=== PATIENT | male | born 1950 | race Caucasian/White ===

== ENCOUNTER 2021-01-10 10:24 | Outpatient (REF) | payer MEDICARE, SELFPAY ==
--- NOTE | ~2021-01-10 | XR_ITS ---
EXAMINATION: RIGHT SHOULDER AND LEFT FOOT X-RAY CLINICAL INFORMATION: Pain COMPARISON: None TECHNIQUE: 4 views of the right shoulder and 3 views of the left foot FINDINGS: Right shoulder: Bone alignment is normal. No fracture or dislocation is seen. The glenohumeral joint is normal. There is mild arthritis at the acromioclavicular joint. Soft tissues are normal. Left foot: Bone alignment is normal. No fracture or dislocation is seen. 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 There are small calcaneal spurs. Soft tissues are otherwise normal. XR/XR foot LT 2V IMPRESSION: Right shoulder: Mild arthritis at the acromioclavicular joint. Left foot: Arthritis at the first MTP joint. Calcaneal spurs.
--- NOTE | ~2021-01-10 | XR_ITS ---
EXAMINATION: RIGHT SHOULDER AND LEFT FOOT X-RAY CLINICAL INFORMATION: Pain COMPARISON: None TECHNIQUE: 4 views of the right shoulder and 3 views of the left foot FINDINGS: Right shoulder: Bone alignment is normal. No fracture or dislocation is seen. The glenohumeral joint is normal. There is mild arthritis at the acromioclavicular joint. Soft tissues are normal. Left foot: Bone alignment is normal. No fracture or dislocation is seen. 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 There are small calcaneal spurs. Soft tissues are otherwise normal. XR/XR shoulder RT min 2V IMPRESSION: Right shoulder: Mild arthritis at the acromioclavicular joint. Left foot: Arthritis at the first MTP joint. Calcaneal spurs.
[2021-01-10 12:12] LABS: Anion Gap 12 (12-20); Blood Urea Nitrogen 22 mg/dL (9-16); Calcium 9.5 mg/dL (8.4-10.2); Carbon Dioxide 30 mmol/L (22-29); Chloride 106 mmol/L (96-108); Estimated Glomerular Filt Rate > 60; Glucose Random 97 mg/dL (60-115); Sodium 144 mmol/L (135-145); Uric Acid 7.7 mg/dL (3.4-7.0)
== END 2021-01-10 10:25 | disposition home or self-care (01) ==
LOC: HO.XRAY 10:24
PROVIDERS: PCP Internal Medicine; Visit Provider Internal Medicine
DX: M79.672 Pain in left foot (principal)
CPT/HCPCS: 36415; 73030; 73620; 80048; 84550

== ENCOUNTER 2021-01-30 13:07 | Outpatient (REF) | payer MEDICARE, SELFPAY ==
[2021-01-30 14:04] LABS: MANUAL DIFF FLAG NO
[2021-01-30 14:10] LABS: Basophils Percent Auto 0.1 % (0-2); Eosinophils Absolute Auto 0.3 X10*3/uL (0.0-0.4); Eosinophils Percent Auto 3.9 % (0-4); Hematocrit 45.6 % (42-52); Hemoglobin 14.7 g/dl (14.0-18.0); Imm Gran Abs Auto 0.01 X10*3/uL (0.00-0.03); Imm Gran Pct Auto 0.1 % (0.0-0.4); Lymphocytes Absolute Auto 1.4 X10*3/uL (1.2-4.9); Lymphocytes Percent Auto 20.3 % (20-40); Mean Corpuscular HGB Conc 32.2 g/dl (31.0-36.0); Mean Corpuscular Hemoglobin 29.9 pg (27.0-33.0); Mean Corpuscular Volume 92.9 fL (80-98); Mean Platelet Volume 11.7 fL (9.4-12.4); Monocytes Absolute Auto 0.5 X10*3/uL (0.1-1.2); Monocytes Percent Auto 6.9 % (2-11); Neutrophils Absolute Auto 4.7 X10*3/uL (2.0-8.3); Neutrophils Percent Auto 68.7 % (45-73); Platelet Count 144 X10*3/uL (160-400); Red Blood Count 4.91 X10*6/uL (4.60-5.80); Red Cell Distribution Width 12.8 % (11.0-16.0); White Blood Count 6.9 X10*3/uL (4.8-10.8)
[2021-01-30 14:37] LABS: Cholesterol 127 mg/dL; HDL Cholesterol 35 mg/dL; LDL Cholesterol Calculated 64 mg/dl; Triglycerides 140 mg/dL
[2021-01-30 14:57] LABS: Prostate Specific Antigen 0.85 ng/mL (<0.05-4.0); TSH reflex Free T4 0.36 uIU/mL (0.32-4.0); Vitamin D 25-OH Total 32.8 ng/mL (>30)
== END 2021-01-30 13:08 | disposition home or self-care (01) ==
LOC: HO.LAB 13:07
PROVIDERS: PCP Internal Medicine; Visit Provider Nurse Practitioner Family
DX: Z00.00 Encounter for general adult medical examination without abnormal findings (principal); Z12.5 Encounter for screening for malignant neoplasm of prostate; I10 Essential (primary) hypertension
CPT/HCPCS: 36415; 80061; 82306; 84153; 84443; 85025

== ENCOUNTER 2021-09-17 09:26 | Outpatient (REF) | payer MEDICARE, SELFPAY ==
[2021-09-17 09:43] LABS: MANUAL DIFF FLAG NO
[2021-09-17 09:59] LABS: Basophils Percent Auto 0.1 % (0-2); Eosinophils Absolute Auto 0.2 X10*3/uL (0.0-0.4); Eosinophils Percent Auto 3.2 % (0-4); Hematocrit 48.2 % (42.0-52.0); Hemoglobin 15.7 g/dl (14.0-18.0); Imm Gran Abs Auto 0.01 X10*3/uL (0.00-0.03); Imm Gran Pct Auto 0.1 % (0.0-0.4); Lymphocytes Absolute Auto 1.5 X10*3/uL (1.2-4.9); Lymphocytes Percent Auto 21.4 % (20-40); Mean Corpuscular HGB Conc 32.6 g/dl (31.0-36.0); Mean Corpuscular Hemoglobin 30.4 pg (27.0-33.0); Mean Corpuscular Volume 93.4 fL (80.0-98.0); Monocytes Absolute Auto 0.5 X10*3/uL (0.1-1.2); Monocytes Percent Auto 7.8 % (2-11); Neutrophils Absolute Auto 4.7 x10*3/uL (2.0-8.3); Neutrophils Percent Auto 67.4 % (45-73); Platelet Count 142 X10*3/uL (160-400); Red Blood Count 5.16 X10*6/uL (4.60-5.80); Red Cell Distribution Width 13.1 % (11.0-16.0)
[2021-09-17 10:40] LABS: Alanine Aminotransferase 26 U/L (0-40); Albumin Level 4.1 g/dL (3.5-5.0); Alkaline Phosphatase 110 U/L (39-117); Anion Gap 8 (12-20); Aspartate Amino Transferase 29 U/L (5-37); Blood Urea Nitrogen 22 mg/dL (9-16); Calcium 9.8 mg/dL (8.4-10.2); Carbon Dioxide 36 mmol/L (22-29); Chloride 105 mmol/L (96-108); Cholesterol 147 mg/dL; Estimated Glomerular Filt Rate > 60; Glucose Fasting 108 mg/dL (60-99); HDL Cholesterol 37 mg/dL; LDL Cholesterol Calculated 82 mg/dl; Potassium 4.4 mmol/L (3.3-5.1); Sodium 145 mmol/L (135-145); Triglycerides 140 mg/dL; Uric Acid 4.6 mg/dL (3.4-7.0)
== END 2021-09-17 09:27 | disposition home or self-care (01) ==
LOC: HO.LAB 09:26
PROVIDERS: PCP Internal Medicine; Visit Provider Internal Medicine
DX: Z00.00 Encounter for general adult medical examination without abnormal findings (principal); Z13.0 Encounter for screening for diseases of the blood and blood-forming organs and certain disorders involving the immune mechanism; M10.9 Gout, unspecified
CPT/HCPCS: 36415; 80053; 80061; 84550; 85025

== ENCOUNTER 2022-03-09 10:24 | Outpatient (REF) | payer MEDICARE, SELFPAY ==
[2022-03-09 12:35] LABS: Anion Gap 12 (12-20); Blood Urea Nitrogen 36 mg/dL (9-16); Calcium 9.3 mg/dL (8.4-10.2); Carbon Dioxide 34 mmol/L (22-29); Chloride 100 mmol/L (96-108); Estimated Glomerular Filt Rate 47; Glucose Random 100 mg/dL (60-115); Potassium 4.7 mmol/L (3.3-5.1); Sodium 141 mmol/L (135-145)
== END 2022-03-09 10:25 | disposition home or self-care (01) ==
LOC: HO.LAB 10:24
PROVIDERS: PCP Internal Medicine; Visit Provider Internal Medicine
DX: R51.9 Headache, unspecified (principal)
CPT/HCPCS: 36415; 80048

== ENCOUNTER 2022-11-09 08:47 | Outpatient (REF) | payer MEDICARE, SELFPAY ==
[2022-11-09 09:03] LABS: MANUAL DIFF FLAG NO
[2022-11-09 09:18] LABS: Basophils Percent Auto 0.3 % (0-2); Eosinophils Absolute Auto 0.2 X10*3/uL (0.0-0.4); Eosinophils Percent Auto 3.3 % (0-4); Hematocrit 47.8 % (42.0-52.0); Hemoglobin 15.1 g/dl (14.0-18.0); Imm Gran Abs Auto 0.01 X10*3/uL (0.00-0.03); Imm Gran Pct Auto 0.1 % (0.0-0.4); Lymphocytes Absolute Auto 1.8 X10*3/uL (1.2-4.9); Lymphocytes Percent Auto 24.1 % (20-40); Mean Corpuscular HGB Conc 31.6 g/dl (31.0-36.0); Mean Corpuscular Hemoglobin 29.7 pg (27.0-33.0); Mean Corpuscular Volume 93.9 fL (80.0-98.0); Mean Platelet Volume 10.4 fL (9.4-12.4); Monocytes Absolute Auto 0.6 X10*3/uL (0.1-1.2); Monocytes Percent Auto 8.4 % (2-11); Neutrophils Absolute Auto 4.6 x10*3/uL (2.0-8.3); Neutrophils Percent Auto 63.8 % (45-73); Platelet Count 162 X10*3/uL (160-400); Red Blood Count 5.09 X10*6/uL (4.60-5.80); Red Cell Distribution Width 13.4 % (11.0-16.0); White Blood Count 7.3 X10*3/uL (4.8-10.8)
[2022-11-09 09:58] LABS: Alanine Aminotransferase 22 U/L (0-40); Alkaline Phosphatase 120 U/L (39-117); Anion Gap 14 (12-20); Aspartate Amino Transferase 28 U/L (5-37); Bilirubin Total 1.1 mg/dL (0.0-1.0); Blood Urea Nitrogen 29 mg/dL (9-16); Calcium 9.6 mg/dL (8.4-10.2); Carbon Dioxide 35 mmol/L (22-29); Chloride 101 mmol/L (96-108); Cholesterol 159 mg/dL; Estimated Glomerular Filt Rate 57; Glucose Fasting 113 mg/dL (60-99); HDL Cholesterol 37 mg/dL; LDL Cholesterol Calculated 91 mg/dl; Potassium 4.5 mmol/L (3.3-5.1); Sodium 145 mmol/L (135-145); Total Protein 6.8 g/dL (6.5-8.0); Triglycerides 159 mg/dL
== END 2022-11-09 08:48 | disposition home or self-care (01) ==
LOC: HO.LAB 08:47
PROVIDERS: PCP Internal Medicine; Visit Provider Internal Medicine
DX: D64.9 Anemia, unspecified (principal); N28.9 Disorder of kidney and ureter, unspecified; E78.5 Hyperlipidemia, unspecified; M10.9 Gout, unspecified
CPT/HCPCS: 36415; 80053; 80061; 84550; 85025

== ENCOUNTER 2022-11-12 11:39 | Outpatient (REF) | payer MEDICARE, SELFPAY ==
--- NOTE | ~2022-11-12 | XR_ITS ---
EXAMINATION: XR LUMBOSACRAL SPINE CLINICAL INFORMATION: Back pain COMPARISON: None available. TECHNIQUE: Three views of the lumbosacral spine. FINDINGS: There is mild 3 mm anterior subluxation of L4 with respect L5. Bone alignment is otherwise normal. No fracture or dislocation. There is degenerative disc disease and spondylosis at L5-S1. There is lower lumbar spine facet arthritis. XR/XR lumbar spine 2-3V IMPRESSION: Mild anterior subluxation of L4 with respect L5 and degenerative disc disease and spondylosis at L5-S1.
--- NOTE | ~2022-11-12 | XR_ITS ---
EXAMINATION: Knee x-ray CLINICAL INFORMATION: Pain COMPARISON: None. TECHNIQUE: 2 views of each knee FINDINGS: Left: Bone alignment is normal. No fracture or dislocation. Normal joint spaces. No joint effusion. Right: Bone alignment is normal. No fracture or dislocation. Normal joint spaces. No joint effusion. XR/XR knee LT 2V IMPRESSION: Unremarkable examination.
--- NOTE | ~2022-11-12 | XR_ITS ---
EXAMINATION: Knee x-ray CLINICAL INFORMATION: Pain COMPARISON: None. TECHNIQUE: 2 views of each knee FINDINGS: Left: Bone alignment is normal. No fracture or dislocation. Normal joint spaces. No joint effusion. Right: Bone alignment is normal. No fracture or dislocation. Normal joint spaces. No joint effusion. XR/XR knee RT 2V IMPRESSION: Unremarkable examination.
--- NOTE | ~2022-11-12 | XR_ITS ---
EXAMINATION: Bilateral hip x-ray CLINICAL INFORMATION: Pain COMPARISON: None. TECHNIQUE: 2 views of each hip FINDINGS: Right: Bone alignment is normal. No fracture or dislocation. Normal joint space. Normal soft tissues. Left: Bone alignment is normal. No fracture or dislocation. Normal joint space. Normal soft tissues. XR/XR hip RT min 2V IMPRESSION: Unremarkable examination.
--- NOTE | ~2022-11-12 | XR_ITS ---
EXAMINATION: Bilateral hip x-ray CLINICAL INFORMATION: Pain COMPARISON: None. TECHNIQUE: 2 views of each hip FINDINGS: Right: Bone alignment is normal. No fracture or dislocation. Normal joint space. Normal soft tissues. Left: Bone alignment is normal. No fracture or dislocation. Normal joint space. Normal soft tissues. XR/XR hip LT min 2V IMPRESSION: Unremarkable examination.
== END 2022-11-12 11:40 | disposition home or self-care (01) ==
LOC: HO.XRAY 11:39
PROVIDERS: PCP Internal Medicine; Visit Provider Internal Medicine
DX: M25.552 Pain in left hip (principal); M54.9 Dorsalgia, unspecified; M25.551 Pain in right hip; M25.561 Pain in right knee; M25.562 Pain in left knee
CPT/HCPCS: 72100; 73502; 73560

== ENCOUNTER 2023-02-23 10:56 | Outpatient (REF) | payer MEDICARE, SELFPAY ==
[2023-02-23 13:01] LABS: Cholesterol 132 mg/dL; HDL Cholesterol 34 mg/dL; LDL Cholesterol Calculated 65 mg/dl; Triglycerides 166 mg/dL; Uric Acid 5.3 mg/dL (3.4-7.0)
== END 2023-02-23 10:57 | disposition home or self-care (01) ==
LOC: HO.LAB 10:56
PROVIDERS: PCP Internal Medicine; Visit Provider Internal Medicine
DX: M10.9 Gout, unspecified (principal); E78.5 Hyperlipidemia, unspecified
CPT/HCPCS: 36415; 80061; 84550

== ENCOUNTER 2023-03-22 11:17 | Outpatient (AMB) | payer MEDICARE, SELFPAY ==
--- NOTE | 2023-03-22 11:20 | MHC.PC.OV ---
Vital Signs 03/22/23 11:21 Height 5 ft 4.5 in Weight 213 lb 6 oz BMI 36.1 BP 130/80 Blood Pressure Location Rt brachial Position Sitting Pulse 84 Pulse Source Pulse Oximeter Pulse Oximetry (%) 95 Intake Visit Reasons: Sore Left Shoulder Intake Note: pt is here for c/o sore left shoulder, denies injury Carrier Driver Required: No Accompanied by: Self / Same As Patient Allergies penicillin G Allergy (Unknown, Verified 03/22/23 11:21) Unknown Medication List - Last Reconciled 03/22/23 by Luis Terry MD allopurinol 300 mg PO DAILY aspirin 1 tab PO DAILY atorvastatin 40 mg PO DAILY carvedilol 25 mg PO BID chlorthalidone 25 mg PO clopidogrel 75 mg PO DAILY valsartan 320 mg PO DAILY Tobacco use date assessed: 02/12/23 Fall risk assessment: No Falls in past year Last assessed Fall Risk: 03/22/23 Dental Screening Dental Screen Date: 03/22/23 Did you have a dental visit in the last 12 months?: Yes Did you have a dental problem in the last 6 months where you did not have access to dental care?: No Was dental information given to patient?: Patient has dentist HPI Sore Left Shoulder HPI Details left shoulder pain for a week or two; no injury PFSH Medical History Gout History of nephrolithotomy with removal of calculi Hyperlipidemia Obesity Screening for prostate cancer Surgical History History of tonsillectomy Family History Mother No problems noted. Father No problems noted. Social History Housing: Condominium Housing Other:: LIVING WITH RELATIVE Alcohol intake: current Alcohol intake frequency: holidays/special occasions only Patient Tobacco Use Status: Never used Tobacco e-Cigarette/Vaping Use: Never Used Second Hand Smoke Exposure: No service: No Current occupational status: retired Cognitive needs: No Hearing needs: No Vision needs: Yes (GLASSES) Questionnaire PHQ-9 Over the last 2 weeks, how often have you been bothered by any of the following problems? Depression Screening Interpretation: Negative Source: Developed by Drs. Brant Rodriguez, Maggie Burnette, Antolin Bowser and colleagues, with an educational daron from [employer]. Thrive Questionnaire Date Thrive assessed: 11/05/22 Currently or been in a relationship where the following occur: no concerns reported ZAID-7 AMB Questionnaire ZAID-7 Date ZAID - 7 assessed: 11/05/22 Source: Developed by Drs. Brant Rodriguez, Maggie Burnette, Antolin Bowser and colleagues, with an educational daron from [employer]. Review of Systems Const Denies chills, Denies headache(s) and Denies weight loss ENT Denies headache(s) Card Denies chest pain, Denies syncope, Denies irregular heart rhythm and Denies dyspnea Resp Denies chest congestion, Denies cough and Denies dyspnea GI Denies abdominal pain, Denies change in stool character, Denies nausea and Denies vomiting Musc Denies deformity and Denies joint swelling Neuro Denies syncope and Denies headache(s) Physical exam (Primary Care) Vital Signs: Last Vital Signs Pulse 84 03/22/23 11:21 BP 130/80 03/22/23 11:21 Pulse Ox 95 03/22/23 11:21 BMI result Body Mass Index 36.1 Tobacco/Smoking Status: Tobacco use Status Tobacco use date assessed 02/12/23 03/22/23 11:27 Patient Tobacco Use Status Never used Tobacco 03/22/23 11:27 e-Cigarette/Vaping Use Never Used 03/22/23 11:27 Depression Screening Interpretation: Negative Thrive Assessment: Date of Thrive Assessment Date Thrive assessed 11/05/22 03/22/23 11:27 Currently or been in a relationship where the following occur: no concerns reported Const General: cooperative, comfortable and no acute distress Resp Effort & Inspection: normal respiratory effort Auscultation: clear to auscultation bilaterally Percussion: percussion normal Cardio Jugular venous distension: no JVD Rate: regular rate Rhythm: regular rhythm GI Inspection: Yes normal to inspection Assessment and Plan Assessment & Plan (1) Shoulder pain: Code(s): M25.519 - Pain in unspecified shoulder Orders: Orders PT Evaluation and Treatment Today M25.519 - Pain in unspecified shoulder XR shoulder LT min 2V Today M25.519 - Pain in unspecified shoulder Coding Level of Care Code Est Pt Level 3 (76410) Diagnoses Shoulder pain M25.519
[2023-03-22 11:21] VITALS: BP 130/80; PULSE 84; O2SAT 95; BMI 36.1
== END 2023-03-22 11:38 | disposition home or self-care (01) ==
PROVIDERS: PCP Internal Medicine; Visit Provider Internal Medicine
DX: M25.519 Pain in unspecified shoulder (principal)
CPT/HCPCS: 99213

== ENCOUNTER 2023-03-22 11:42 | Outpatient (REF) | payer MEDICARE, SELFPAY ==
--- NOTE | ~2023-03-22 | XR_ITS ---
EXAMINATION: XR SHOULDER, LEFT CLINICAL INFORMATION: Shoulder pain COMPARISON: None available. TECHNIQUE: AP external rotation, Grashey, scapular Y, and axillary views of the left shoulder. FINDINGS: The humeral head is well positioned over the intact glenoid. Glenohumeral joint space is normal. Negligible osteophyte formation at inferior glenohumeral joint. No fracture or subluxation. Acromioclavicular joint is normal. The acromion process has a flat undersurface (i.e., type I morphology). The subacromial space is normal. Scapula is normal. No calcium deposition within rotator cuff tendons. The visualized portion of the left lung is normal. XR/XR shoulder LT min 2V IMPRESSION: * No fracture or malalignment at the left shoulder. * No evidence of calcific tendinopathy. * There appears to be minimal osteoarthrosis of the left glenohumeral joint.
== END 2023-03-22 11:43 | disposition home or self-care (01) ==
LOC: HO.XRAY 11:42
PROVIDERS: PCP Internal Medicine; Visit Provider Internal Medicine
DX: M25.512 Pain in left shoulder (principal)
CPT/HCPCS: 73030

== ENCOUNTER 2023-03-24 10:00 | Outpatient (RCR) | payer MEDICARE, SELFPAY ==
--- NOTE | 2023-01-06 15:32 | MHC.PT.EP ---
[facility] [place] Office [place] Office [place] Office [address] Stephane Chandler [address] [phone] F: [phone] F: [phone] F: [phone] F: [phone] Physical Therapy Plan of Care Date of Evaluation: Date of Surgery: NA Diagnosis: SPINAL STENOSIS Assessment: Pt IS 72 YO M REFERRED TO PT FROM DR GOODEN WITH SPINAL STENOSIS. REPORTS STARTED FEELING MM WEAKNESS IN LEGS STARTING IN SEP/OCTOBER. REPORTS HAS ALWAYS WALKED ALOT. STARTING GETTING SOME DISCOMFORT I LEGS ESPECIALLY FIRST WAKING UP IN MORNING (REALLY STIFF..STUMBLE TO BR). REPORTS HE USED TO BE ABLE TO WALK FURTHER. REPORTS NOT REALLY MIRELES BUT MORE AN ACHE. REPORTS HE HAS TO SICK MORE FREQUENTLY AND TAKE BREAKS. WENT TO PCP, BLOOD WORK/XRAYS. +SPINAL STENOSIS. LAST SUMMER HAVING SOME BACK ISSUES HAS HAD CARDIAC REHAB (2019) AT [facility] [place] PRESENTS TO PT WITH TIGHT LES (HS AND CALF MMS) POOR CORE STRENGTH, C/O PAIN IN LB AND LES AND WEAKNESS AFFECTING ADLS (ESPECIALLY STAND AND WALK TIME). SHOULD BENEFIT FROM PT TO ADDRESS THESE ISSUES Frequency and Duration: The patient will be seen 2X/WK X 6 WKS Short Term Goals: 1. INCREASED AWARENESS BACK CARE 2. Pt ABLE TO CONTRACT ABDOMINAL MUSCLES AND NOT HOLD BREATH Migration Specialist Goals: 1. I HEP WITH DC EX PLAN 2. INCREASED HS FLEXIBILITY 10 DEGREES B 3. Pt TO REPORT INCREASE IN STAND TIME/WALK TIME Treatment Plan: Modalities to reduce pain, spasms and effusion. Manual therapy to restore motion and function. Therapeutic exercise to improve strength and flexibility. Neuromuscular re-education for posture and balance. Therapeutic activities to return to functional activities of daily living. Electronically signed by: ABEL STRICKLAND PT Please sign and return to therapist. Thank you for your referral.
--- NOTE | 2023-02-04 15:46 | MHC.PT.OD ---
[facility] [place] [address] [place] [facility] [place] Office [address] Stephane Chandler [address] [phone] F: [phone] F: [phone] F: [phone] F: [phone] Physical Therapy Daily Note Diagnosis: SPINAL STENOSIS Date of Surgery: NA Date of Evaluation: 01/06/23 Date of Treatment: 02/04/23 Treatments to Date: 6 Cancellations to Date: No Shows to Date: Authorized Visits: Insurance End Date: Precautions/ Contraindications:CARDIAC (JUST SAW HAND BANDER YESTERDAY..BP AT GOOD LEVEL) Subjective: Im going back to see Dr. Terry on 02/12. Im feeling frustrated with the progress. It seemed like it was helping a little bit at first but my legs feel weak. Pain Score and Location: 5 LB, LES Objective Flowsheet: Tests & Measures Therapist inquires about blood pressure reading at home, pt reports has not yet received a new machine at home but defers therapist checking today. No, I have some tooth pain today and Im a bit on edge but I feel good. Pt denies any chest pain, dizziness, reports taking blood pressure medication as prescribed. Exercises Pt defer bike to home Review of standing gastroc stretch against wall (completed prostretch 4 minutes each side L>R in office). Seated HS stretch x 4R x 20 sec hold (education of what stretches goals are) (reports L LE radiating calf sx, R LE okay localized to HS only, educated do not want radiating LE sx. Hooklying SKTC> LBTR x 4R x 20 sec hold, hooklying TAC october x reviewed x 2 sets 10R. Seated table slides/trunk flexion stretches at height of table, seated trunk rotation for upper backx 4R x 20 sec hold educated to perform within gentle tolerance. Pt educated re: do not want radiating sx into LE with activities, educated re: what each activity/goals area for therex task. Education for frequent stretching, low reps, gentle stretch tolerance, not pushing too far, breathing with activity, slow pace. Walking program> small short distances vs walking incline if trialing assessing his tolerance. Guidance for STG/LTG with therapy Expectations of exercise, stretches/ strengthening tasks, addressing patient specific questions in regards to HEP Modalities Assessment: 02/04/23: Pt has attended 7 visits since start of care 01/06/23. Pt has made fair>limited progress in reduction of his LE/lumbar sx. He requires repeated review and reeducation each visit for previously issued HEP and needs redirection activity for (ie: stretch vs strength and goals of task, not pushing into pain). He verbalizes memory impairment and expresses compliance with use of HEP sheets. Despite issuing sheets, patient continues to showcase limited carryover. He has implemented daily biking for approximately 10-15 minutes am/pm. He does admit he is rigid in his behaviors, I dont do anything in the AM with encouragement to trial frequency for activity when advised to trial activities in the am (when he feels his symptoms are the worst). He was educated in goal of trialing low rep, frequent flexion based stretching activities in goals of aiding his stenosis symptoms. He was educated to stop anything that causes pain or radiating pain in the LE. Pt denies pain in his LE, reports majority of his sx are R sided lumbar and reports he feels weak. He was trialed in some gentle hooklying strengthening activities (specifically bridging) which irritated his symptoms (no pain at the time but reports was sore afterwards for a few days). He verbalizes his LTG is to walk the bike path with a sloped hill. Pt was advised walking on flat terrain is preferred goal, educated in stretching pre/during with seated rests vs incline walking. Plan is to trial some manual therapy/postural tape next session to ease/decompress lumbar region. Pt to see Dr. Terry for follow up on 02/12/23. Please advise. Thank you for you referral. 01/25/23: Pt reports he judges his improvement by his tolerance for walking the bike-trail and his ability to climb a specific hill he likes to walk to enter the trail. At start of care he reports he was unable to do this task, how he states his legs are getting stronger to walk up this incline. He expresses LTG to be able to walk longer distances with improved strength. Time spent today reviewing technique of tasks above; pt requires technique/goals of exercise to be reviewed today. Pt reports recovering from dental work last week (had some teeth pulled) will progress to [facility] as able over next few sessions. PROGRESSING WITH STRETCHES/EXS WITHOUT SIGNIF C/O BACK PAIN, NEEDS CUES FOR TECHNIQUE AND BREATHIN. PT Plan: NEUTRAL/GENTLE FLEXION BASED EXS, STRETCHES, BODY MECH, CORE WORK, MODALITIES/ST WORK PRN Short Term Goals: 1. INCREASED AWARENESS BACK CARE 2. Pt ABLE TO CONTRACT ABDOMINAL MUSCLES AND NOT HOLD BREATH Detention Goals: 1. I HEP WITH DC EX PLAN 2. INCREASED HS FLEXIBILITY 10 DEGREES B 3. Pt TO REPORT INCREASE IN STAND TIME/WALK TIME Electronically signed by: Renu Esteves PT, DPT
--- NOTE | 2023-03-24 11:42 | MHC.PT.EP ---
[facility] [place] Office [place] Office [place] Office [address] Stephane Chandler [address] [phone] F: [phone] F: [phone] F: [phone] F: [phone] Physical Therapy Plan of Care Date of Evaluation: Date of Surgery: NA Diagnosis: SPINAL STENOSIS Assessment: Pt IS 72 YO M REFERRED TO PT FROM DR GOODEN WITH SPINAL STENOSIS. REPORTS STARTED FEELING MM WEAKNESS IN LEGS STARTING IN SEP/OCTOBER. REPORTS HAS ALWAYS WALKED ALOT. STARTING GETTING SOME DISCOMFORT I LEGS ESPECIALLY FIRST WAKING UP IN MORNING (REALLY STIFF..STUMBLE TO BR). REPORTS HE USED TO BE ABLE TO WALK FURTHER. REPORTS NOT REALLY MIRELES BUT MORE AN ACHE. REPORTS HE HAS TO SICK MORE FREQUENTLY AND TAKE BREAKS. WENT TO PCP, BLOOD WORK/XRAYS. +SPINAL STENOSIS. LAST SUMMER HAVING SOME BACK ISSUES HAS HAD CARDIAC REHAB (2019) AT [facility] [place] PRESENTS TO PT WITH TIGHT LES (HS AND CALF MMS) POOR CORE STRENGTH, C/O PAIN IN LB AND LES AND WEAKNESS AFFECTING ADLS (ESPECIALLY STAND AND WALK TIME). SHOULD BENEFIT FROM PT TO ADDRESS THESE ISSUES Frequency and Duration: The patient will be seen 2X/WK X 6 WKS Short Term Goals: 1. INCREASED AWARENESS BACK CARE 2. Pt ABLE TO CONTRACT ABDOMINAL MUSCLES AND NOT HOLD BREATH Ruling Machine Feeder Goals: 1. I HEP WITH DC EX PLAN 2. INCREASED HS FLEXIBILITY 10 DEGREES B 3. Pt TO REPORT INCREASE IN STAND TIME/WALK TIME Treatment Plan: Modalities to reduce pain, spasms and effusion. Manual therapy to restore motion and function. Therapeutic exercise to improve strength and flexibility. Neuromuscular re-education for posture and balance. Therapeutic activities to return to functional activities of daily living. Electronically signed by: ABEL STRICKLAND PT Please sign and return to therapist. Thank you for your referral.
== END 2023-03-24 11:43 | disposition home or self-care (01) ==
LOC: HO.PTWFD 10:00
PROVIDERS: PCP Internal Medicine; Visit Provider Internal Medicine
DX: M48.00 Spinal stenosis, site unspecified (principal)
CPT/HCPCS: 97110; 97150; 97161; 97530; 97535

== ENCOUNTER 2023-05-17 10:30 | Outpatient (AMB) | payer MEDICARE, SELFPAY ==
[2023-05-17 10:32] VITALS: BP 132/80; PULSE 75; O2SAT 95; BMI 36.5
--- NOTE | 2023-05-17 10:32 | MHC.PC.OV ---
Vital Signs 05/17/23 10:32 Height 5 ft 4.5 in Weight 216 lb BMI 36.5 BP 132/80 Blood Pressure Location Lt brachial Position Sitting Pulse 75 Pulse Source Pulse Oximeter Pulse Oximetry (%) 95 Oxygen Delivery Method Room Air Intake Visit Reasons: Annual Physical per insurance Supervisor [employer] Required: No Building Estimator: Not Required per policy Accompanied by: Self / Same As Patient Allergies penicillin G Allergy (Unknown, Verified 05/17/23 10:32) Unknown Medication List - Last Reconciled 05/17/23 by Luis Terry MD allopurinol 300 mg PO DAILY aspirin 1 tab PO DAILY atorvastatin 40 mg PO DAILY carvedilol 25 mg PO BID chlorthalidone 25 mg PO clopidogrel 75 mg PO DAILY valsartan 320 mg PO DAILY Tobacco use date assessed: 02/12/23 Fall risk assessment: No Falls in past year Last assessed Fall Risk: 05/17/23 Dental Screening Dental Screen Date: 05/17/23 Did you have a dental visit in the last 12 months?: Yes Did you have a dental problem in the last 6 months where you did not have access to dental care?: No Was dental information given to patient?: Patient has dentist HPI Annual Physical per insurance HPI Details Gout hyperlipidemia and HTN; chronic low back pain; refuses mri [facility] Medical History (Updated 05/17/23 @ 11:16 by Luis Terry MD) Hyperlipidemia Obesity Screening for prostate cancer Gout History of nephrolithotomy with removal of calculi Surgical History History of tonsillectomy Family History Mother No problems noted. Father No problems noted. Social History Housing: Condominium Housing Other:: LIVING WITH RELATIVE Alcohol intake: current Alcohol intake frequency: holidays/special occasions only Patient Tobacco Use Status: Never used Tobacco e-Cigarette/Vaping Use: Never Used Second Hand Smoke Exposure: No service: No Current occupational status: retired Cognitive needs: No Hearing needs: No Vision needs: Yes (GLASSES) Questionnaire PHQ-9 Over the last 2 weeks, how often have you been bothered by any of the following problems? Depression Screening Interpretation: Negative Source: Developed by Drs. Brant Rodriguez, Maggie Burnette, Antolin Bowser and colleagues, with an educational daron from [employer]. Thrive Questionnaire Date Thrive assessed: 11/05/22 AUDIT C Alcohol Use Questionnaire (AUDIT-C) 1. How often do you have a drink containing alcohol?: Monthly or less 2. How many drinks containing alcohol do you have on a typical day when you are drinking?: 1 or 2 3. How often do you have six or more drinks on one occasion?: Never Total Score: 1 Score Reviewed/Action Taken: Yes ZAID-7 AMB Questionnaire ZAID-7 Date ZAID - 7 assessed: 11/05/22 Source: Developed by Drs. Brant Rodriguez, Maggie Burnette, Antolin Bowser and colleagues, with an educational daron from [employer]. Review of Systems Const Denies chills, Denies fatigue, Denies headache(s) and Denies weight loss Eyes Denies change in vision, Denies diplopia and Denies eye pain ENT Denies vertigo, Denies dizziness, Denies headache(s) and Denies nasal discharge Card Denies chest pain, Denies rapid heart rate and Denies dyspnea on exertion Resp Denies chest congestion, Denies cough, Denies pain with cough and Denies dyspnea on exertion GI Denies abdominal pain, Denies hematochezia and Denies change in bowel habits Musc Denies myalgias, Denies arthralgias and Denies joint swelling Skin/Breast Denies lesions and Denies unusual bruising Neuro Denies vertigo, Denies dizziness, Denies headache(s) and Denies focal weakness Endo Denies fatigue Physical exam (Primary Care) Vital Signs: Last Vital Signs Pulse 75 05/17/23 10:32 BP 132/80 05/17/23 10:32 Pulse Ox 95 05/17/23 10:32 Oxygen Delivery Method Room Air 05/17/23 10:32 BMI result Body Mass Index 36.5 Tobacco/Smoking Status: Tobacco use Status Tobacco use date assessed 02/12/23 05/17/23 10:33 Patient Tobacco Use Status Never used Tobacco 05/17/23 10:33 e-Cigarette/Vaping Use Never Used 05/17/23 10:33 Depression Screening Interpretation: Negative Thrive Assessment: Date of Thrive Assessment Date Thrive assessed 11/05/22 05/17/23 10:33 Const General: cooperative, healthy appearing and no acute distress Orientation/consciousness: oriented to person, oriented to place and oriented to time HENMT Head: Yes normal to inspection, Yes normocephalic and Yes atraumatic Mouth: Normal oral and palatal mucosa present and tongue normal Throat: Yes posterior oropharynx normal and Yes uvula midline Eyes General: appearance normal, both eyes and all related structures Neck Neck: Yes normal visual inspection, Yes full ROM and Yes no lymphadenopathy Thyroid: Thyroid normal Carotids: normal carotid upstroke Chest Chest palpation & inspection: normal inspection of the chest Resp Effort & Inspection: normal respiratory effort and able to speak in complete sentences Auscultation: clear to auscultation bilaterally Cardio Jugular venous distension: no JVD Palpation: normal PMI Rate: regular rate Rhythm: regular rhythm Heart sounds: S1 normal heart sound present and S2 normal heart sound present GI Inspection: Yes normal to inspection Palpation (GI): Soft to palpation and No hepatosplenomegaly present Auscultation: normal bowel sounds General: Yes no CVA tenderness Back/Spine/Pelvis Back: no CVA tenderness Skin General skin exam: no rashes or lesions noted Neuro General: oriented to person, oriented to place and oriented to time Extrem General: Yes normal to inspection and Yes full ROM Office Procedures Flu Questionnaire Does the patient have a severe egg allergy?: No Does the patient have severe life threatening allergies?: No Does the patient have a fever or illness today?: No Has the patient ever had Guillain-[place] Syndrome?: No Has the patient ever had any past reaction to a flu shot?: No Immunizations flu vacc [id number] 6mos up(PF) 60 mcg(15 mcgx4)/0.5 mL IM syringe Performing Provider: Luis Terry MD [facility] Documented (not given) by: KACIE Mckee on 05/17/23 10:41 Reason Not Given: Received Previously Assessment and Plan Assessment & Plan (1) Physical exam: Code(s): Z00.00 - Encounter for general adult medical examination without abnormal findings Plan: stable (2) Hyperlipidemia: Code(s): E78.5 - Hyperlipidemia, unspecified Plan: stable; same rx (3) Hypertension: Code(s): I10 - Essential (primary) hypertension Qualifiers: Hypertension type: unspecified Qualified Code(s): I10 - Essential (primary) hypertension Plan: stabel ;same rx (4) Gout: Code(s): M10.9 - Gout, unspecified Qualifiers: Gout site: toe Gout etiology: unspecified cause Chronicity: unspecified Laterality: left Qualified Code(s): M10.9 - Gout, unspecified Plan: stable; same rx (5) Spinal stenosis: Code(s): M48.00 - Spinal stenosis, site unspecified Plan: CT scan and referral; has failed pt Orders: Orders Influenza [id number] Immunization Today Z23 - Encounter for immunization Lipid Panel Today E78.5 - Hyperlipidemia, unspecified Thyroid Stimulating Hormone Today E03.9 - Hypothyroidism, unspecified Complete Blood Count Auto Diff Today D64.9 - Anemia, unspecified CT lumbar spine w IV con Today M48.00 - Spinal stenosis, site unspecified Comprehensive [place]. Panel Fast Today N28.9 - Disorder of kidney and ureter, unspecified Referrals Neurosurgery Referral M48.00 - Spinal stenosis, site unspecified Medications: New cane As directed 1 ea 0RF M48.00 - Spinal stenosis, site unspecified Coding Level of Care Code Est Pt Prev Care >65y(44664) Diagnoses Physical exam Z00.00 Hyperlipidemia E78.5 Hypertension, unspecified type I10 Hypertension type: unspecified Gout involving toe of left foot, unspecified cause, unspecified chronicity M10.9 Gout site: toe Gout etiology: unspecified cause Chronicity: unspecified Laterality: left Spinal stenosis M48.00
== END 2023-05-17 10:54 | disposition home or self-care (01) ==
PROVIDERS: PCP Internal Medicine; Visit Provider Internal Medicine
DX: Z00.00 Encounter for general adult medical examination without abnormal findings (principal); E78.5 Hyperlipidemia, unspecified; I10 Essential (primary) hypertension; M10.9 Gout, unspecified; M48.00 Spinal stenosis, site unspecified
CPT/HCPCS: 99397

== ENCOUNTER 2023-05-18 13:00 | Outpatient (RCR) | payer MEDICARE, OTHER, SELFPAY ==
[2023-04-09 12:57] VITALS: BP 140/80; PULSE 77; O2SAT 96
--- NOTE | 2023-04-09 15:06 | MHC.PT.EP ---
[facility] [place] Office [place] Office [place] Office [address] Stephane Chandler [address] [phone] F: [phone] F: [phone] F: [phone] F: [phone] Physical Therapy Plan of Care Date of Evaluation: Date of Surgery: Diagnosis: PT eval and treat, Pain in unspecfied shoulder M25.[address] Terry on 03/23/23 Assessment: Pt is a RHD 72 y/o male, referred to PT from his PCP for treatment insidious onset of shoulder pain which began beginning of March this year. Pt underwent xrays: XR/XR shoulder LT min 2V IMPRESSION: * No fracture or malalignment at the left shoulder. * No evidence of calcific tendinopathy. * There appears to be minimal osteoarthrosis of the left glenohumeral joint. Dictated By:Eliseo Onofre MD Signed By:<Electronically signed by Eliseo Onofre MD in OV>03/24/23 1239 Pt exhibits flexed posture/rounded shoulders, decreased postural awareness, impaired AROM, expresses painful movement with abd/er/end ranges IR. Pt exhibits decreased tolerance for sleeping for lifting reaching or carrying with his L UE. Pt would benefit from gentle AAROM/postural/scapular stab program in effort to reduce sx, improve strength of periscapular region. Pt was initiated in pec minor stretch, postural education, and sx of eval consistent with bicep tendonitis. Pt exhibits (+) speed test, (+) impingement, compensation of domination of upper trap musculature, weakness midddle and lower trapezius, rhomboids with decreased ability to isolate retraction/depression (+) dominance in shrug/elevation . Pt expressing intolerance for lifting carrying a 12 pack of seltzer or groceries to and from the home. Pt exhbits good rehab potential and has high level of motivation. Pt inquires about ability to initiate PT 1x/week to start. Frequency and Duration: The patient will be seen 2x/week x 4 weeks Short Term Goals: 1. AAROM R shoulder flexion to 150 degrees. 2. AAROM R shoulder flexion to 130 degrees. 3. Improve strength of postural musculature. 4. Pt will be able to move to open a door with L UE without surge of sx. 5. Pt will increase length of pectoralis musculature. 6. Pt will demonstrate isolation of scapular retractors. Half-Way Goals: 1. AROM R shoulder flexion within functional tolerance. 2. Pt will demonstrate I HEP with self care. 3. Pt will demonstrate improvement in SPADI score by 50%. 4. Pt will demonstrate strength of periscap retraction with good tolerance. 5. Middle trap, lower trap, and rhomboid on L 5/5. 5. Pt will be able to lift groceries, dress, carry MOD I sx <3/10 L shoulder. Treatment Plan: Modalities to reduce pain, spasms and effusion. Manual therapy to restore motion and function. Therapeutic exercise to improve strength and flexibility. Neuromuscular re-education for posture and balance. Therapeutic activities to return to functional activities of daily living. Electronically signed by: Renu Esteves, PT, DPT Please sign and return to therapist. Thank you for your referral.
== END 2023-09-14 13:10 | disposition home or self-care (01) ==
LOC: HO.PTWFD 13:00
PROVIDERS: PCP Internal Medicine; Visit Provider Internal Medicine
DX: M25.512 Pain in left shoulder (principal)
CPT/HCPCS: 97014; 97110; 97140; 97161; 97535

== ENCOUNTER 2023-05-25 11:46 | Outpatient (REF) | payer MEDICARE, SELFPAY ==
[2023-05-25 13:43] LABS: Alanine Aminotransferase 20 U/L (0-40); Albumin Level 4.1 g/dL (3.5-5.0); Alkaline Phosphatase 115 U/L (39-117); Anion Gap 14 (12-20); Aspartate Amino Transferase 32 U/L (5-37); Bilirubin Total 0.7 mg/dL (0.0-1.0); Blood Urea Nitrogen 25 mg/dL (9-16); Calcium 10.3 mg/dL (8.4-10.2); Carbon Dioxide 34 mmol/L (22-29); Chloride 101 mmol/L (96-108); Cholesterol 151 mg/dL (<200); Estimated Glomerular Filt Rate > 60; Glucose Fasting 104 mg/dL (60-99); HDL Cholesterol 33 mg/dL (>40); LDL Cholesterol Calculated 72 mg/dL (<100); Potassium 4.7 mmol/L (3.3-5.1); Sodium 144 mmol/L (135-145); Thyroid Stimulating Hormone 0.76 uIU/mL (0.32-4.0); Total Protein 7.7 g/dL (6.5-8.0); Triglycerides 231 mg/dL (<150)
== END 2023-05-25 11:47 | disposition home or self-care (01) ==
LOC: HO.LAB 11:46
PROVIDERS: PCP Internal Medicine; Visit Provider Internal Medicine
DX: E78.5 Hyperlipidemia, unspecified (principal); E03.9 Hypothyroidism, unspecified; D64.9 Anemia, unspecified; N28.9 Disorder of kidney and ureter, unspecified
CPT/HCPCS: 36415; 80053; 80061; 84443; 85025

== ENCOUNTER 2023-06-14 09:43 | Outpatient (REF) | payer MEDICARE, OTHER, SELFPAY ==
--- NOTE | ~2023-06-14 | CT_ITS ---
EXAMINATION: CT LUMBAR SPINE WITH INTRAVENOUS CONTRAST CLINICAL INFORMATION: Spinal stenosis. COMPARISON: Plain films of the lumbar spine 11/12/2022. TECHNIQUE: A post contrast axial CT scan of the lumbar spine was obtained. Coronal and sagittal reformatted images were generated at the acquisition workstation. Intravenous contrast: 85 mL of Omnipaque 350. This CT examination was performed using dose optimization techniques as appropriate, variously including the following: *Automated exposure control *Adjustment of mA and/or kV according to patient size (this includes techniques or standardized protocols for targeted exams where dose is matched to indication/reason for exam; i.e. extremities or head) *Use of iterative reconstruction technique DLP: 739 mGy-cm FINDINGS: VERTEBRAL BODIES AND PARASPINAL STRUCTURES: There is a very mild sigmoid scoliosis, convex to the right at L1-L2 and toward the left at L4-L5. There is a 3 mm grade 1 anterolisthesis of L4 on L5 and there is a mild retrolisthesis of L5 on S1. There is marked narrowing of disc height at L5-S1 with degenerative endplate contour changes and sclerosis. Vacuum discs are seen at L4-L5 and L5-S1. There are prominent Schmorl's nodes in the superior endplate of L3 in the inferior endplate of L4. Vertebral body heights are maintained, and no fractures are demonstrated. There is heterogenous mineralization in the right iliac bone posteriorly with some areas of low Hounsfield units consistent with fluid. There are atheromatous calcifications of the infrarenal abdominal aorta. There are bilateral renal cysts, most prominent on the left. The visualized pelvic structures are unremarkable. SPINAL LEVELS: T12-L1: There is mild bilateral facet arthropathy. Disc contour is normal. There is no central stenosis or foraminal narrowing. L1-L2: There is moderate bilateral facet arthropathy. There is a shallow posterior disc protrusion which appears to extend into the right neural foramen. There is no central stenosis. L2-L3: There is moderate bilateral facet arthropathy. There is a diffuse disc bulge which flattens the ventral thecal sac and narrows the subarticular recesses. There is mild central stenosis. There is no foraminal nerve root impingement. L3-L4: There is mild bilateral facet arthropathy. There is a posterior disc protrusion with flattening the ventral thecal sac and narrows the subarticular recesses bilaterally. There is no foraminal nerve root impingement. L4-L5: There is markedly severe right and severe left facet arthropathy. There is unroofing of the disc as a result of the anterolisthesis, and there is compression of the thecal sac and narrowing of the bilateral subarticular recesses. There is severe central stenosis. There are bilateral foraminal disc protrusions, more prominent on the right with impingement on the exiting L4 nerve roots. L5-S1: There are mild to moderate bilateral facet arthropathic changes. There is a posterior disc osteophyte complex which is most prominent on the left. This extends into the bilateral neural foramina with impingement on the exiting L5 nerve roots, more severe on the left. There is also narrowing of the left subarticular recess. There is mild stenosis. CT/CT lumbar spine w IV con IMPRESSION: 1. There is a grade 1 anterolisthesis of L4 on L5 secondary to facet arthropathy. There is compression of the thecal sac and there is narrowing of the bilateral subarticular recesses. There is severe central stenosis. There are bilateral foraminal disc protrusions, more prominent on the right with impingement on the exiting L4 nerve roots. 2. At L5-S1 there is a posterior disc osteophyte complex which is most prominent on the left. This extends into the neural foramina with impingement on the exiting L5 nerve roots. There is no mild stenosis. 3. There is heterogenous mineralization in the right iliac bone posteriorly, with areas of fluid attenuation. This may be consistent with bony cysts. This could be further evaluated with MRI scan of the lumbar spine. 4. Spondylitic and facet arthropathic changes are also demonstrated at other levels as described above.
[2023-06-14] MEDS: iohexoL 350 MG/ML 100 ML INFUS..BTL IV (10:27)
== END 2023-06-14 09:44 | disposition home or self-care (01) ==
LOC: HO.CT 09:43
PROVIDERS: PCP Internal Medicine; Visit Provider Internal Medicine
DX: M48.00 Spinal stenosis, site unspecified (principal)
CPT/HCPCS: 72132; Q9967

== ENCOUNTER 2023-09-21 11:07 | Outpatient (AMB) | payer MEDICARE, SELFPAY ==
[2023-09-21 11:09] VITALS: BP 148/84; PULSE 88; O2SAT 98; BMI 38.2
--- NOTE | 2023-09-21 11:09 | MHC.PC.OV ---
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: Not Required per policy Accompanied by: Self / Same As Patient Allergies penicillin G Allergy (Unknown, Verified 09/21/23 11:09) Unknown Medication List - Last Reconciled 09/22/23 by Luis Terry MD allopurinol 300 mg PO DAILY aspirin 1 tab PO DAILY atorvastatin 40 mg PO DAILY cane As directed carvedilol 25 mg PO BID chlorthalidone 25 mg PO clopidogrel 75 mg PO DAILY valsartan 320 mg PO DAILY Tobacco use date assessed: 09/21/23 Fall risk assessment: No Falls in past year Last assessed Fall Risk: 09/21/23 Dental Screening Dental Screen Date: 09/21/23 Did you have a dental visit in the last 12 months?: Yes Did you have a dental problem in the last 6 months where you did not have access to dental care?: No Was dental information given to patient?: Patient has dentist HPI 3M f/u HPI Details hyperlip htn and gout on rx; doing well; compliant with regimen [facility] Medical History (Updated 05/17/23 @ 11:16 by Luis Terry MD) Hyperlipidemia Obesity Screening for prostate cancer Gout History of nephrolithotomy with removal of calculi Surgical History History of tonsillectomy Family History Mother No problems noted. Father No problems noted. Social History Housing: Condominium Housing Other:: LIVING WITH RELATIVE Alcohol intake: current Alcohol intake frequency: holidays/special occasions only Patient Tobacco Use Status: Never used Tobacco e-Cigarette/Vaping Use: Never Used Second Hand Smoke Exposure: No service: No Current occupational status: retired Cognitive needs: No Hearing needs: No Vision needs: Yes (GLASSES) Questionnaire PHQ-9 Over the last 2 weeks, how often have you been bothered by any of the following problems? 1. Little interest or pleasure in doing things: not at all 2. Feeling down, depressed, or hopeless: not at all 3. Trouble falling or staying asleep, or sleeping too much: not at all 4. Feeling tired or having little energy: not at all 5. Poor appetite or overeating: not at all 6. Feeling bad about yourself - or that you are a failure or have let yourself or your family down: not at all 7. Trouble concentrating on things, such as reading the newspaper or watching television: not at all 8. Moving or speaking so slowly that other people could have noticed. Or the opposite - being so fidgety or restless that you have been moving around a lot more than usual: not at all 9. Thoughts that you would be better off or of hurting yourself in some way: not at all Total score: 0 Depression Screening Interpretation: Negative Depression Screening Done: Yes 27379 - PHQ-9 Billing: Yes Source: Developed by Drs. Brant Rodriguez, Maggie Burnette, Antolin Bowser and colleagues, with an educational daron from [employer]. Thrive Questionnaire Date Thrive assessed: 09/21/23 I am a: Patient What is your living situation today?: I have a steady place to live Within the past 12 months, did the food you bought not last and you didn't have the money to get more?: Never true Within the past 12 months, did you worry whether your food would run out before you got money to buy more?: Never true Do you have trouble paying for medicines?: No Do you have trouble getting transportation to medical appointments?: No Do you have trouble paying your heating and electricity bill?: No Do you have trouble taking care of your child, family member or friend?: No Do you have trouble with day-to-day activities such as bathing, preparing meals, shopping, managing finances, etc.?: No Are you currently unemployed and looking for a job?: No Are you interested in more education?: No Please select the resources that you would like help with: None THRIVE Score: 0 AUDIT C Alcohol Use Questionnaire (AUDIT-C) 1. How often do you have a drink containing alcohol?: Monthly or less 2. How many drinks containing alcohol do you have on a typical day when you are drinking?: 1 or 2 3. How often do you have six or more drinks on one occasion?: Never Total Score: 1 Score Reviewed/Action Taken: Yes ZAID-7 AMB Questionnaire ZAID-7 Date ZAID - 7 assessed: 09/21/23 Feeling nervous, anxious, or on edge: 0 = Not at all Not being able to stop or control worryin = Not at all Worrying too much about different things: 0 = Not at all Trouble relaxin = Not at all Being so restless that it is hard to sit still: 0 = Not at all Becoming easily annoyed or irritable: 0 = Not at all Feeling afraid as if something awful might happen: 0 = Not at all Total ZAID-7 score (0-4 normal; 5-9 mild; 10-14 moderate; 15-21 severe): 0 Source: Developed by Drs. Brant Rodriguez, Maggie Burnette, Antolin Bowser and colleagues, with an educational daron from [employer]. ZAID-7 Assessment Billing ZAID-7 Assessment Tool: ZAID-7 Assessment 37786 Review of Systems Const Denies chills, Denies headache(s) and Denies weight loss ENT Denies headache(s) Card Denies chest pain, Denies syncope, Denies irregular heart rhythm and Denies dyspnea Resp Denies chest congestion, Denies cough and Denies dyspnea GI Denies abdominal pain, Denies change in stool character, Denies nausea and Denies vomiting Musc Denies deformity and Denies joint swelling Neuro Denies syncope and Denies headache(s) Physical exam (Primary Care) Vital Signs: Last Vital Signs Pulse 88 09/21/23 11:09 BP 148/84 H 09/21/23 11:09 Pulse Ox 98 09/21/23 11:09 Oxygen Delivery Method Room Air 09/21/23 11:09 BMI result Body Mass Index 38.2 Tobacco/Smoking Status: Tobacco use Status Tobacco use date assessed 09/21/23 09/21/23 11:16 Patient Tobacco Use Status Never used Tobacco 09/21/23 11:16 e-Cigarette/Vaping Use Never Used 09/21/23 11:16 PHQ-9: PHQ-9 Score PHQ-9: Total score 0 09/21/23 11:16 Depression Screening Interpretation: Negative Thrive Assessment: Date of Thrive Assessment Date Thrive assessed 09/21/23 09/21/23 11:16 Const General: cooperative, comfortable, no acute distress and alert Neck Neck: Yes no lymphadenopathy Thyroid: Thyroid normal Resp Effort & Inspection: normal respiratory effort Auscultation: clear to auscultation bilaterally Percussion: percussion normal Cardio Jugular venous distension: no JVD Palpation: normal PMI Rate: regular rate Rhythm: regular rhythm Heart sounds: S1 normal heart sound present and S2 normal heart sound present GI Inspection: Yes normal to inspection Palpation (GI): No hepatosplenomegaly present Skin General skin exam: no rashes or lesions noted Extrem General: Yes no clubbing, cyanosis or edema Assessment and Plan Assessment & Plan (1) Hyperlipidemia: Code(s): E78.5 - Hyperlipidemia, unspecified Plan: stable; same rx (2) Hypertension: Code(s): I10 - Essential (primary) hypertension Qualifiers: Hypertension type: unspecified Qualified Code(s): I10 - Essential (primary) hypertension Plan: stable; same rx (3) Gout: Code(s): M10.9 - Gout, unspecified Qualifiers: Gout site: toe Gout etiology: unspecified cause Chronicity: unspecified Laterality: left Qualified Code(s): M10.9 - Gout, unspecified Plan: stable; same rx Orders: Orders Lipid Panel Today E78.5 - Hyperlipidemia, unspecified Coding Level of Care Code Est Pt Level 4 (97568) Diagnoses Hyperlipidemia E78.5 Hypertension, unspecified type I10 Hypertension type: unspecified Gout involving toe of left foot, unspecified cause, unspecified chronicity M10.9 Gout site: toe Gout etiology: unspecified cause Chronicity: unspecified Laterality: left Additional Codes ZAID-7 Assessment Billing - ZAID-7 Assessment Tool: ZAID-7 Assessment [id number] ([id number])
== END 2023-09-21 11:29 | disposition home or self-care (01) ==
PROVIDERS: PCP Internal Medicine; Visit Provider Internal Medicine
DX: E78.5 Hyperlipidemia, unspecified (principal); I10 Essential (primary) hypertension; M10.9 Gout, unspecified
CPT/HCPCS: 99214

== ENCOUNTER 2023-09-27 11:38 | Outpatient (REF) | payer MEDICARE, SELFPAY ==
[2023-09-27 13:09] LABS: Cholesterol 143 mg/dL (<200); HDL Cholesterol 39 mg/dL (>40); LDL Cholesterol Calculated 67 mg/dL (<100); Triglycerides 186 mg/dL (<150)
== END 2023-09-27 11:39 | disposition home or self-care (01) ==
LOC: HO.LAB 11:38
PROVIDERS: PCP Internal Medicine; Visit Provider Internal Medicine
DX: E78.5 Hyperlipidemia, unspecified (principal)
CPT/HCPCS: 36415; 80061

== ENCOUNTER 2023-12-20 11:00 | Outpatient (AMB) | payer MEDICARE, SELFPAY ==
[2023-12-20 11:09] VITALS: BP 138/72; PULSE 80; O2SAT 97; BMI 38.0
--- NOTE | 2023-12-20 11:09 | MHC.PC.OV ---
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 Merchandise Displayer: Not Required per policy Accompanied by: Self / Same As Patient Allergies penicillin G Allergy (Unknown, Verified 12/20/23 11:09) Unknown Medication List - Last Reconciled 12/20/23 by Luis Terry MD allopurinol 300 mg PO DAILY aspirin 1 tab PO DAILY atorvastatin 40 mg PO DAILY cane As directed carvedilol 25 mg PO BID chlorthalidone 25 mg PO clopidogrel 75 mg PO DAILY valsartan 320 mg PO DAILY Tobacco use date assessed: 09/21/23 Fall risk assessment: No Falls in past year Last assessed Fall Risk: 12/20/23 Dental Screening Dental Screen Date: 09/21/23 HPI 3mth f/u HPI Details HTN on Rx; doing well; compliant [facility] Medical History (Updated 05/17/23 @ 11:16 by Luis Terry MD) Hyperlipidemia Obesity Screening for prostate cancer Gout History of nephrolithotomy with removal of calculi Surgical History History of tonsillectomy Family History Mother No problems noted. Father No problems noted. Social History Housing: Condominium Housing Other:: LIVING WITH RELATIVE Alcohol intake: current Alcohol intake frequency: holidays/special occasions only Patient Tobacco Use Status: Never used Tobacco e-Cigarette/Vaping Use: Never Used Second Hand Smoke Exposure: No service: No Current occupational status: retired Cognitive needs: No Hearing needs: No Vision needs: Yes (GLASSES) Questionnaire Thrive Questionnaire Date Thrive assessed: 09/21/23 ZAID-7 AMB Questionnaire ZAID-7 Date ZAID - 7 assessed: 09/21/23 Source: Developed by Drs. Brant Rodriguez, Maggie Burnette, Antolin Bowesr and colleagues, with an educational daron from [employer]. Review of Systems Const Denies chills, Denies headache(s) and Denies weight loss ENT Denies headache(s) Card Denies chest pain, Denies syncope, Denies irregular heart rhythm and Denies dyspnea Resp Denies chest congestion, Denies cough and Denies dyspnea GI Denies abdominal pain, Denies change in stool character, Denies nausea and Denies vomiting Musc Denies deformity and Denies joint swelling Neuro Denies syncope and Denies headache(s) Physical exam (Primary Care) Vital Signs: Last Vital Signs Pulse 80 12/20/23 11:09 BP 138/72 12/20/23 11:09 Pulse Ox 97 12/20/23 11:09 Oxygen Delivery Method Room Air 12/20/23 11:09 BMI result Body Mass Index 38.0 Tobacco/Smoking Status: Tobacco use Status Tobacco use date assessed 09/21/23 12/20/23 11:10 Patient Tobacco Use Status Never used Tobacco 12/20/23 11:10 e-Cigarette/Vaping Use Never Used 12/20/23 11:10 Thrive Assessment: Date of Thrive Assessment Date Thrive assessed 09/21/23 12/20/23 11:10 Const General: cooperative, comfortable, no acute distress and alert Neck Neck: Yes no lymphadenopathy Thyroid: Thyroid normal Resp Effort & Inspection: normal respiratory effort Auscultation: clear to auscultation bilaterally Percussion: percussion normal Cardio Jugular venous distension: no JVD Palpation: normal PMI Rate: regular rate Rhythm: regular rhythm Heart sounds: S1 normal heart sound present and S2 normal heart sound present GI Inspection: Yes normal to inspection Palpation (GI): No hepatosplenomegaly present Skin General skin exam: no rashes or lesions noted Extrem General: Yes no clubbing, cyanosis or edema Assessment and Plan Assessment & Plan (1) Hypertension: Code(s): I10 - Essential (primary) hypertension Qualifiers: Hypertension type: unspecified Qualified Code(s): I10 - Essential (primary) hypertension Plan: stable; same rx Coding Level of Care Code Est Pt Level 3 (35504) Diagnoses Hypertension, unspecified type I10 Hypertension type: unspecified
== END 2023-12-20 11:35 | disposition home or self-care (01) ==
PROVIDERS: PCP Internal Medicine; Visit Provider Internal Medicine
DX: I10 Essential (primary) hypertension (principal)
CPT/HCPCS: 99213

== ENCOUNTER 2024-03-06 10:24 | Outpatient (REF) | payer MEDICARE, SELFPAY ==
--- NOTE | ~2024-03-06 | XR_ITS ---
EXAMINATION: XR LUMBOSACRAL SPINE CLINICAL INFORMATION: Lateral flexion-extension, evaluate for instability COMPARISON: CT lumbar spine 06/14/2023 TECHNIQUE: Three views of the lumbosacral spine. FINDINGS: No fracture. There is grade 1 anterolisthesis of L4 and L5 measuring approximately 8 mm in upright position, there is suggestion of instability on the flexion views with anterolisthesis measuring 1.3 cm. There is facet arthropathy in the lower lumbar spine. Mild bony spurring. The sacroiliac joints appear intact. XR/XR lumbar spine 2-3V IMPRESSION: Grade 1 anterolisthesis of L4 on L5 measuring approximately 8 mm in upright position, there is suggestion of instability on the flexion views measuring 1.3 cm.
== END 2024-03-06 10:25 | disposition home or self-care (01) ==
LOC: HO.XRAY 10:24
PROVIDERS: PCP Internal Medicine; Visit Provider Physical Medicine & Rehabilitation
DX: M77.8 Other enthesopathies, not elsewhere classified (principal)
CPT/HCPCS: 72100

== ENCOUNTER 2024-06-16 12:51 | Outpatient (AMB) | payer MEDICARE, SELFPAY ==
--- NOTE | 2024-06-16 12:57 | HO.SPINEOV ---
Intake Visit Reasons: LBP Intake Note: Mr. Killian is here today c/o low back pain. Collar Baster Jumpbasting Required: No Allergies penicillin G Allergy (Unknown, Verified 06/16/24 13:02) Unknown Assessment & Plan Assessment & Plan (1) Spondylolisthesis, lumbar region: Code(s): M43.16 - Spondylolisthesis, lumbar region Category: Medical Plan Dear Dr. Farmer, Thank you for referring Mr. Killian to our office today. This is a very nice 73-year-old gentleman who has a history of a multiyear complaint of low back pain radiating down both his legs into his hamstrings and calves, left greater than right. He has been slowly getting worse, attempted to treat it with physical therapy as well as cortisone injections. He did get relief from the L5-S1 epidural that was done but the affect was short-lived. He has been slowly modifying his activities but he is now getting to the point where just doing simple things like trying to go for short walker very difficult. He has to calculate where the benches will be when he goes for a walk in the park so we can know when he should sit down. Had been taking Tylenol but it did not really do much. Has an MRI showing severe stenosis at L4-5 with a synovial cyst on the right L4-5 facet. He was being considered for a mild procedure, but apparently something about the anesthesia in his heart, the anesthesia team did not feel it was indicated for an outpatient surgical center so it was canceled. He was sent to us to see if he is a surgical candidate from Dr. Rivas. PMH: He has a history of hypertension, gout, coronary artery ectasia and is on dual antiplatelet therapy for that. He is followed by Dr. Cheek at [facility] cardiology. He has a history of nonischemic cardiomyopathy thought secondary to uncontrolled hypertension at 1 point. His EF was 15%, but more recently ultrasound revealed that it is up to 40% with treatment of his hypertension. Does not have any regular shortness of breath or chest pain etc.. No PND or orthopnea. There is a note in the [place] system detailing his history., history of biceps tendinitis, kidney stones in the . Social hx: He does not smoke, drink use any recreational drugs Medications: Aspirin, Plavix, allopurinol, atorvastatin, carvedilol, valsartan and chlorthalidone Allergies: Penicillin Physical exam: Awake alert oriented no acute distress, full strength in bilateral lower extremities with intact reflexes. Very slow to stand up, antalgic gait. Imaging review: There is a lumbar MRI done in February of 2024 showing degenerative changes at L4-5 and L5-S1, he has a grade 1 spondylolisthesis at L4-5 with moderate to severe central canal stenosis. There is a right synovial cyst coming off the L4-5 region. It is narrowing the lateral recess. He had flexion-extension studies done at [facility] and this shows significant exaggeration of his spondylolisthesis in the flexion view. Impression: 73-year-old male presents to the office today for evaluation of low back pain and bilateral lower extremity pain left greater than right worse with walking better when he sits down. Has good days and bad days but in general over the years the pain has been getting significantly worse. He has L4-5 stenosis with sent signs of instability on his flexion-extension x-rays. Given the signs of instability on the x-ray, a simple decompression or something like a mild procedure will likely just create more instability. Dr. Rivas reviewed the MRI of the x-rays as well and agrees that the patient will need spinal instrumentation to stabilize him, specifically we talked about an oblique lumbar interbody fusion L4-5.. We did discuss the procedure at length, risks, benefits etc.. He understands he will have to stop his aspirin and Plavix 10 days prior to surgery. I suspect our anesthesia team would likely want a note from Dr. Cheek at [facility] cardiology as preoperative evaluation. He will call us back to let us know how he would like to proceed. Pt was given risk and benefits of surgery including but not limited to infection, hematoma , nerve injury,durotomy, weakness,bowel/bladder injury, persistent pain, hardware failure as well as the option to continue with conservative treatment and patient wishes to proceed with surgery. All questions were answered to the best of our ability. If there is anything about this patients medical history that we have overlooked or concerns you have about us proceeding with surgery we would appreciate any input you can offer. Thank you for allowing us to care for your patient. The total time spent with this visit with this patient was 45 minutes reviewing history, physical exam, lumbar imaging review, and implementation of treatment plan or further diagnostic testing Joseph Rivas MD,PhD [facility] Coding Level of Care Code New Pt Level 4 (23096) Diagnoses Spondylolisthesis, lumbar region M43.16
== END 2024-06-16 14:24 | disposition home or self-care (01) ==
LOC: HO.HNS 12:51
PROVIDERS: PCP Internal Medicine; Referring Provider Physical Medicine & Rehabilitation; Visit Provider Physician Assistant
DX: M43.16 Spondylolisthesis, lumbar region (principal)
CPT/HCPCS: 99204

== ENCOUNTER → 2024-06-16 12:51 | Outpatient (BNVA) | payer MEDICARE, SELFPAY | PROVIDERS: PCP Internal Medicine; Referring Provider Physical Medicine & Rehabilitation; Visit Provider Physician Assistant | DX: M43.16 Spondylolisthesis, lumbar region (principal) | CPT/HCPCS: 99202 ==

== ENCOUNTER → 2024-10-23 11:13 | Outpatient (BNV) | payer MEDICARE, SELFPAY | PROVIDERS: Admitting Provider Neurological Surgery; PCP Internal Medicine; Visit Provider Internal Medicine | DX: I45.2 Bifascicular block (principal) | CPT/HCPCS: 93010 ==

== ENCOUNTER 2024-10-27 10:44 | Outpatient (AMB) | payer MEDICARE, SELFPAY ==
--- NOTE | 2024-10-27 10:50 | MHC.PC.OV ---
Vital Signs 10/27/24 10:53 Height 5 ft 4.5 in Weight 234 lb 4 oz BMI 39.6 BP 130/90 H Blood Pressure Location Lt brachial Position Sitting Pulse 85 Pulse Source Pulse Oximeter Temp 97.3 F Temp Source Temporal Artery Scan Pulse Oximetry (%) 98 Oxygen Delivery Method Room Air Intake Visit Reasons: 3 month f/u Intake Note: Patient is here to follow up on HTN, . Washing Machine Installer Required: No Radiology Equipment Servicer: Not Required per policy Accompanied by: Self / Same As Patient Allergies Penicillins Allergy (Verified 10/27/24 10:53) Unknown, as a child as told by mother Medication List - Last Reconciled 10/30/24 by Luis Terry MD allopurinol 300 mg PO DAILY aspirin 1 tab PO DAILY atorvastatin 40 mg PO BEDTIME cane As directed carvedilol 25 mg PO BID chlorthalidone 12.5 mg PO DAILY clopidogrel 75 mg PO DAILY valsartan 320 mg PO DAILY Tobacco use date assessed: 10/27/24 Fall risk assessment: No Falls in past year Last assessed Fall Risk: 10/27/24 Dental Screening Dental Screen Date: 10/27/24 Did you have a dental visit in the last 12 months?: No Did you have a dental problem in the last 6 months where you did not have access to dental care?: No Was dental information given to patient?: No HPI 3 month f/u HPI Details htn hyperlipidemia and gout all stable; sees cardiology for cardiomyopathy [facility] Medical History (Updated 10/23/24 @ 11:22 by Divina Berg RN) Teeth missing Left shoulder pain Tendonitis Arthritis Situational anxiety Weakness of both legs Cardiomyopathy CAD (coronary artery disease) HTN (hypertension) Environmental allergies Seasonal allergies PND (post-nasal drip) Hx of renal calculi Hyperlipidemia Obesity Screening for prostate cancer Gout History of nephrolithotomy with removal of calculi Surgical History Hx of cystoscopy (~1994) History of tonsillectomy (~1954) Family History Mother No problems noted. Father No problems noted. Social History Household Members: None Housing: Apartment Are you a primary healthcare associate to a significant other at home: No Do you presently have visiting nurse or other home services: No 75 years or older and lives alone: No Alcohol intake: current Alcohol intake frequency: does not drink Patient Tobacco Use Status: Never used Tobacco e-Cigarette/Vaping Use: Never Used Second Hand Smoke Exposure: No service: No Current occupational status: retired Cognitive needs: No Hearing needs: No Vision needs: Yes (GLASSES) Questionnaire PHQ-9 Over the last 2 weeks, how often have you been bothered by any of the following problems? 1. Little interest or pleasure in doing things: not at all 2. Feeling down, depressed, or hopeless: not at all 3. Trouble falling or staying asleep, or sleeping too much: not at all 4. Feeling tired or having little energy: not at all 5. Poor appetite or overeating: not at all 6. Feeling bad about yourself - or that you are a failure or have let yourself or your family down: not at all 7. Trouble concentrating on things, such as reading the newspaper or watching television: not at all 8. Moving or speaking so slowly that other people could have noticed. Or the opposite - being so fidgety or restless that you have been moving around a lot more than usual: not at all 9. Thoughts that you would be better off or of hurting yourself in some way: not at all Total score: 0 Depression Screening Interpretation: Negative Depression Screening Done: Yes Source: Developed by Drs. Brant Rodriguez, Maggie Burnette, Antolin Bowser and colleagues, with an educational daron from [employer]. Thrive Questionnaire Date Thrive assessed: 10/27/24 I am a: Patient What is your living situation today?: I have a steady place to live Within the past 12 months, did the food you bought not last and you didn't have the money to get more?: Never true Within the past 12 months, did you worry whether your food would run out before you got money to buy more?: Never true Do you have trouble paying for medicines?: No Do you have trouble getting transportation to medical appointments?: No Do you have trouble paying your heating and electricity bill?: No Do you have trouble taking care of your child, family member or friend?: No Do you have trouble with day-to-day activities such as bathing, preparing meals, shopping, managing finances, etc.?: No Are you currently unemployed and looking for a job?: No Are you interested in more education?: No Please select the resources that you would like help with: None Currently or been in a relationship where the following occur: No concerns reported THRIVE Score: 0 AUDIT C Alcohol Use Questionnaire (AUDIT-C) 1. How often do you have a drink containing alcohol?: Never Total Score: 0 ZAID-7 AMB Questionnaire ZAID-7 Date ZAID - 7 assessed: 10/27/24 Feeling nervous, anxious, or on edge: 0 = Not at all Not being able to stop or control worryin = Not at all Worrying too much about different things: 0 = Not at all Trouble relaxin = Not at all Being so restless that it is hard to sit still: 0 = Not at all Becoming easily annoyed or irritable: 0 = Not at all Feeling afraid as if something awful might happen: 0 = Not at all Total ZAID-7 score (0-4 normal; 5-9 mild; 10-14 moderate; 15-21 severe): 0 Source: Developed by Drs. Brant Rodriguez, Maggie Burnette, Antolin Bowser and colleagues, with an educational daron from [employer]. Review of Systems Const Denies chills, Denies headache(s) and Denies weight loss ENT Denies headache(s) Card Denies chest pain, Denies syncope, Denies irregular heart rhythm and Denies dyspnea Resp Denies chest congestion, Denies cough and Denies dyspnea GI Denies abdominal pain, Denies change in stool character, Denies nausea and Denies vomiting Musc Denies deformity and Denies joint swelling Neuro Denies syncope and Denies headache(s) Physical exam (Primary Care) Vital Signs: Last Vital Signs Temp 97.3 F 10/27/24 10:53 Pulse 85 10/27/24 10:53 BP 130/90 H 10/27/24 10:53 Pulse Ox 98 10/27/24 10:53 Oxygen Delivery Method Room Air 10/27/24 10:53 BMI result Body Mass Index 39.6 Tobacco/Smoking Status: Tobacco use Status Tobacco use date assessed 10/27/24 10/27/24 10:57 Patient Tobacco Use Status Never used Tobacco 10/27/24 10:51 e-Cigarette/Vaping Use Never Used 10/27/24 10:51 PHQ-9: PHQ-9 Score PHQ-9: Total score 0 10/27/24 10:51 Depression Screening Interpretation: Negative Thrive Assessment: Date of Thrive Assessment Date Thrive assessed 10/27/24 10/27/24 10:51 Currently or been in a relationship where the following occur: No concerns reported Const General: cooperative, comfortable, no acute distress and alert Neck Neck: Yes no lymphadenopathy Thyroid: Thyroid normal Resp Effort & Inspection: normal respiratory effort Auscultation: clear to auscultation bilaterally Percussion: percussion normal Cardio Jugular venous distension: no JVD Palpation: normal PMI Rate: regular rate Rhythm: regular rhythm Heart sounds: S1 normal heart sound present and S2 normal heart sound present GI Inspection: Yes normal to inspection Palpation (GI): No hepatosplenomegaly present Skin General skin exam: no rashes or lesions noted Extrem General: Yes no clubbing, cyanosis or edema Coding Level of Care Code Est Pt Level 4 (90781) Diagnoses Hypertension, unspecified type I10 Hypertension type: unspecified Hyperlipidemia E78.5 Gout involving toe of left foot, unspecified cause, unspecified chronicity M10.9 Gout site: toe Gout etiology: unspecified cause Chronicity: unspecified Laterality: left Assessment & Plan Assessment & Plan (1) Hypertension: Code(s): I10 - Essential (primary) hypertension Category: Medical Qualifiers: Hypertension type: unspecified Qualified Code(s): I10 - Essential (primary) hypertension Plan: stable; same rx (2) Hyperlipidemia: Code(s): E78.5 - Hyperlipidemia, unspecified Category: Medical Plan: stable; same rx (3) Gout: Code(s): M10.9 - Gout, unspecified Category: Medical Qualifiers: Gout site: toe Gout etiology: unspecified cause Chronicity: unspecified Laterality: left Qualified Code(s): M10.9 - Gout, unspecified Plan: stable; same rx
[2024-10-27 10:53] VITALS: BP 130/90; PULSE 85; TEMP 36.3; O2SAT 98; BMI 39.6
--- OUTSIDE RECORDS SUMMARY | 2024-10-27 12:18 | XMS_ITS | Clinical Summary ---
Author Organization [facility] Address [address] [place] [address] Care Team Providers Care Insurance Agency Manager Name Role Phone Unavailable Primary Care Provider Unavailabl e Source Comments PLEASE NOTE, if this patient is a minor, it may be UNLAWFUL to discuss sensitive information that is contained in these records (such as FAMILY PLANNING, MENTAL HEALTH or SUBSTANCE ABUSE) with the minor patient's parent or other person without the patient's specific authorization.[facility] Social History Tobacco Use Types Packs/Day Years Used Date Smoking Tobacco: Never Assessed Social Connections Answer Date Recorded Connectedness 0 04/29/2024 Financial Resource Strain Answer Date R ecorded Financial Resource Strain 0 2022 Stress Answer Date Recorded Stress 0 12/28/2022 Physical Activity Answer Date Recorded Physical Activity 0 12/28/2022 Food Insecurity Answer Date Recorded Food 0 05/11/2024 Transportation Needs Answer Date Record ed Transportation 0 12/28/2022 Housing Stability Answer Date Recorded Housing 0 12/28/2022 Safety and Environment Answer Date Timmy rded Safety 0 12/28/2022 Utilities Answer Date Recorded Utilities 0 12/28/2022 Employment Answer Date Recorded Stress 0 04/29/2024 Sex and Gender Information Value Date Recorded Sex Assigned at Not on file Legal Sex Male 11:28 AM PDT Gender Identity Not on file Sexual Orientation Not on file Last Filed Vital Signs Vital Sign Reading Time Taken Comments Blood Pressure 156/93 12/28/2022 10:57 AM EDT Pulse 82 12/28/2022 10:57 AM EDT Temperature - - Respiratory Rate - - Oxygen Saturation - - Inhaled Oxygen Concentration - - Weight - - Height - - Body Mass Index - - Plan of Treatment Health Maintenance Due Date Last Done Comments Hepatitis C Screening 1950 Lipid Screening 1950 Tobacco Screening 1950 Annual Preventive Care Visit 1968 Imm-DTaP/Tdap/Td (1 - Tdap) 1969 CT Colonography 1995 Colonoscopy 1995 Colorectal Cancer Screening 1995 FIT/gFOBT 1995 Fecal DNA 1995 Flexible Sigmoidoscopy 1995 Imm-Zoster, Recombinant (1 of 2) 2000 Abdominal Aortic Aneurysm Screening 2015 Falls Prevention 2015 Imm-Pneumococcal 65+ (2 of 2 - PPSV23) 06/03/2020 Hypertension Screening (#1) 12/28/2023 [id number] ( - season) 2024 Imm-Influenza (#1) 2024 06/03/2019 Alcohol and Drug Screen 08/16/2024 Depression Annual Screen 08/16/2024 [facility]
== END 2024-10-27 11:05 | disposition home or self-care (01) ==
LOC: HO.HMCH 10:45
PROVIDERS: PCP Internal Medicine; Visit Provider Internal Medicine
DX: I10 Essential (primary) hypertension (principal); E78.5 Hyperlipidemia, unspecified; M10.9 Gout, unspecified

== ENCOUNTER → 2024-10-27 10:44 | Outpatient (BNVA) | payer MEDICARE, SELFPAY | PROVIDERS: PCP Internal Medicine; Visit Provider Internal Medicine | DX: I10 Essential (primary) hypertension (principal); E78.5 Hyperlipidemia, unspecified; M10.9 Gout, unspecified | CPT/HCPCS: 99212 ==

== ENCOUNTER → 2024-11-02 12:40 | Outpatient (REF) | payer MEDICARE, SELFPAY ==
--- NOTE | 2024-11-02 12:43 | CA_ITS ---
Transthoracic Echocardiogram Patient (Last, First, Middle): Fernando Killian J Gender: Male Date of : 1950 Age: 74 Procedure Date: 11/02/2024 Procedure Type: Transthoracic Echocardiogram Location: OP Height: 172.72 cm Weight: 102.06 kg BSA: 2.15 m2 Heart Rate: bpm BP: 146 / 98 mmHg Ceiling Cleaner: TO Referring MD: Max Rivas MD PhD Sensor Technician: Phil Ibarra MD Symptoms: I42.9 - Cardiomyopathy, unspecified Study Quality: Technically Difficult/Contrast ECG Rhythm: Sinus Conclusions: - 1. Mildly to moderately reduced LV ejection fraction 40-45% with grade 1 diastolic dysfunction 2. Cardiac valvular Dopplers within normal limits with mild calcific aortic and mitral valve changes 3. Normal RV systolic pressure Findings Procedure Information Contrast agent, definity, is being given per protocol without apparent complications. Left Ventricle Normal left ventricular cavity size. There is mildly increased left ventricular wall thickness. The left ventricular systolic function is mild to moderately decreased. The visually estimated ejection fraction is between 40-45%. Spectral Doppler is indicative of an impaired relaxation filling pattern. E/E prime ratio is <8, consistent with normal filling pressures. Evidence suggests grade I (mild) diastolic dysfunction. Right Ventricle Mildly increased right ventricular cavity size. There is normal right ventricular systolic function. Atria Mild biatrial enlargement. Interatrial shunt cannot be excluded. Aortic Valve The aortic valve structure and function is likely normal. There is mild calcification of the aortic valve. There is no aortic valve stenosis. There is trace (trivial) aortic valve regurgitation. Mitral Valve There is mild anterior and posterior mitral leaflet thickening. There is mild anterior and mild posterior mitral annular calcification. There is trace mitral valve regurgitation. There is no mitral valve stenosis. Pulmonic Valve The pulmonic valve was not well visualized. Tricuspid Valve Likely normal tricuspid valve structure and function. There is mild tricuspid valve regurgitation. The right ventricular systolic pressure is normal. The right ventricular systolic pressure is 34 mmHg. Normal right atrial pressure. There is no evidence of pulmonary hypertension. Great Vessels All visible segments of the aorta are normal in size. The pulmonary artery was not well visualized. Venous The inferior vena cava is normal in size. Pericardium/Pleural The pericardium was not well visualized. Prior Study Comparison No prior study available for comparison. Measurements 2D Linear Measurements IVSd: 1.21 0.6-0.9/0.6-1.0 cm LVIDd: 5.45 3.9-5.3/4.2-5.9 cm LVIDd Index: 2.53 2.4-3.2/2.2-3.1 cm/m2 LVIDs: 4.04 2.0-3.6 cm LVPWd: 1.04 0.7-1.1 cm LA Diam: 4.00 2.7-3.8/3.0-4.0 cm LAIDs Index: 1.86 1.5-2.3 cm/m2 LV Mass: 306.44 67-162/88-224 g LV Mass Index: 142.53 43-95/49-115 g/m2 LVOT Diam: 2.30 3.0+(-)1.3 cm 2D Systolic Function EF 4C: 46.50 >55% EF 2C: 38.50 >55% EF BiP: 42.70 >55% Mitral Valve MV Pk E: 0.53 MV PK A: 0.83 MV Decel Time: 157.00 E/A: 0.60 E'Lateral: 6.85 E'Medial: 6.09 E/E' Med: 8.60 E/E' Lat: 7.70 PHT: 46.00 MVA PHT: 4.78 Decel Fountain: 3.35 Aortic Valve AoV Pk Deandre: 1.21 AoV Mn Deandre: 0.82 AoV VTI: 0.22 AoV Pk Grad: 6.00 Aov Mn Grad: 3.00 ZORAIDA Cont.VTI: 2.90 LVOT LVOT Pk Deandre: 0.75 LVOT Mn Deandre: 0.47 LVOT VTI: 0.15 LVOT Pk Grad: 2.00 LVOT Mn Grad: 1.00 LVOT Diam: 2.30 LVOT Area: 4.15 Diastolic Function MV Pk E: 0.53 MV Pk A: 0.83 E/A: 0.60 E'Medial: 6.09 E/E' Med: 8.60 E' Laterial: 6.85 E/E' Lat: 7.70 Right Ventricle TAPSE (mm): 23.90 TVS' Deandre: 10.20 Tricuspid Valve TR Pk Deandre: 2.78 TR Pk Grad: 31.00 RA Press: 3.00 RVSP: 34.00 Great Vessels Aorta Sinus of Valsalva: 3.50 2.0-3.5 cm Ao Asc: 3.30 2.1-3.4 cm Updated in Other Vendor System with Status of Final Phil Ibarra MD electronically signed on 11/03/2024 1:45:21 PM with status of Final
--- OUTSIDE RECORDS SUMMARY | 2024-11-02 15:06 | XMS_ITS | Clinical Summary ---
Author Organization [facility] Address [address] [place] [address] Care Team Providers Care Tetryl Nitrator Operator Name Role Phone Unavailable Primary Care Provider [...] - PPSV23) 06/03/2020 Hypertension Screening (#1) 12/28/2023 [id number] ( - season) 2024 Imm-Influenza (#1) 2024 06/03/2019 Alcohol and Drug Screen 08/16/2024 Depression Annual Screen 08/16/2024 [facility]
== END ==
LOC: HO.CARD 12:40
PROVIDERS: PCP Internal Medicine; Visit Provider Neurological Surgery
DX: I42.9 Cardiomyopathy, unspecified (principal); I77.89 Other specified disorders of arteries and arterioles
CPT/HCPCS: 93306; Q9957

== ENCOUNTER → 2024-11-02 12:43 | Outpatient (BNV) | payer MEDICARE, SELFPAY | PROVIDERS: PCP Internal Medicine; Visit Provider Internal Medicine Cardiovascular Disease | DX: I51.7 Cardiomegaly (principal); I51.89 Other ill-defined heart diseases; I35.8 Other nonrheumatic aortic valve disorders; I36.1 Nonrheumatic tricuspid (valve) insufficiency | CPT/HCPCS: 93306 ==

== ENCOUNTER 2024-11-07 06:19 | Inpatient (IN) | payer MEDICARE, SELFPAY ==
--- NOTE | 2024-10-23 | ECG_ITS ---
Test Reason : pre op Blood Pressure : */* mmHG Vent. Rate : 80 BPM Atrial Rate : 80 BPM P-R Int : 148 ms QRS Dur : 162 ms QT Int : 422 ms P-R-T Axes : 50 -76 44 degrees QTcB Int : 486 ms Normal sinus rhythm Right bundle branch block Left anterior fascicular block Bifascicular block Abnormal ECG No previous ECGs available Referred By: Gemma Tiwari Electronically Signed By: JOVAN PIMENTEL
[2024-10-23 10:12] VITALS: BP 142/80; PULSE 80; RESP 16; O2SAT 96; BMI 34.9
[2024-10-23 12:23] LABS: Hematocrit 46.6 % (42.0-52.0); Mean Corpuscular HGB Conc 32.2 g/dl (31.0-36.0); Mean Corpuscular Hemoglobin 29.5 pg (27.0-33.0); Mean Corpuscular Volume 91.7 fL (80.0-98.0); Mean Platelet Volume 10.8 fL (9.4-12.4); Platelet Count 163 X10*3/uL (160-400); Red Blood Count 5.08 X10*6/uL (4.60-5.80); Red Cell Distribution Width 13.9 % (11.0-16.0); White Blood Count 7.7 X10*3/uL (4.8-10.8)
[2024-10-23 12:50] LABS: Anion Gap 14 (12-20); Blood Urea Nitrogen 27 mg/dL (9-16); Calcium 10.3 mg/dL (8.4-10.2); Carbon Dioxide 34 mmol/L (22-29); Chloride 102 mmol/L (96-108); Creatinine Clr Calc Pharmacy 76.6; Estimated Glomerular Filt Rate > 60; Glucose Random 109 mg/dL (60-115); Potassium 4.6 mmol/L (3.3-5.1); Sodium 145 mmol/L (135-145)
[2024-10-23 12:57] LABS: B Type Natriuretic Peptide 18 pg/mL (<100)
[2024-11-07] VITALS (18 sets, daily range): BP systolic 101–160; BP diastolic 48–96; PULSE 72–97; RESP 16–18; TEMP 35.6–36.8; O2SAT 89–95; BMI 35.4
--- NOTE | ~2024-11-07 | FL_ITS ---
EXAMINATION: FL GUIDANCE ONLY HISTORY: L4-L5 OLIF COMPARISON: Correlation is made to plain films of the lumbar spine dated 03/06/2024. TECHNIQUE: Fluoroscopy time: 1 minute, 41.6 seconds. Cumulative Dose: 91.677 mGy. DAP: 29.528 mGym2 Images: 5. FINDINGS: Images demonstrate posterior fusion of L4 and L5 with pedicle screws, spinal stabilization rods, and an intervertebral spacer. There has been improvement in previously seen spondylolisthesis at this level. FL/FL guidance in OR IMPRESSION: Fluoroscopy during procedure. Please see procedure report for additional information. Electronically signed by: Brant Stoner MD 11/07/2024 10:43 AM EDT
[2024-11-07] MEDS: methocarbamoL 750 MG TABLET PO (06:52)
[2024-11-07] MEDS: Gabapentin 300 MG CAPSULE PO (06:52)
--- NOTE | 2024-11-07 07:04 | P.HPSUR_ITS ---
Pre-Procedural Eval Section A - 24 Hr Update-Section A only Date of Service: 11/07/24 The patient is an INPATIENT: No Changes since office visit: No Cold of Flu in the past 2 weeks, No New Medical Problems, No Changes in Medication and No Patient answered all questions The patient has been examined within 24 hours of the surgical procedure. The History & Physical has been completed within 30 days and I have reviewed it.: No Section B - Complete if H&P > 30 days Chief Complaint: s/p L4-5 OLIF Allergies: Allergies Allergy/AdvReac Type Severity Reaction Status Date / Time Penicillins Allergy Unknown, Verified 11/07/24 06:20 as a child as told by mother Review of Systems Sugical H&P ROS: Negative: Constitution, Cardiovascular, Respiratory, Neurological, Psychiatric, Hem-Onc, Allergic/Immunologic, Gastrointestinal, Genitourinary, Musculoskeletal, Integumentary, Endocrine and Eyes/Ea rs/Nose/Throat Exam Surgical H&P Exam: Normal: HEENT, Normal: Heart, Normal: Lungs, Normal: Extremities, Normal: Abdomen, Normal: Skin and Normal: Neurological (awake, alert,oriented x 3 ) Plan Diagnosis/Plan: Unchanged L4-5 oblique lumbar interbody fusion Time Spent With Patient Time: Total time managing care of this patient today _4___ minutes.
[2024-11-07] MEDS: Lactated Ringers 1,000 ML 100 ML IVCONT (07:09)
[2024-11-07] MEDS: vancomycin HCL 1,500 MG in 0.9 % Sodium Chloride 500 ML 333.33 MG IV (07:12)
--- NOTE | 2024-11-07 07:25 | HO.ANESPROP2 ---
Documented by User: Gemma Tiwari NP 10/23/24 11:11 HPI - Anesthesia Eval Consult details Narrative: 74yo M for L4-5 Oblique Lumbar Interbody Fusion, 11/07/24 No recent illness No CP. Some MACDONALD r/t deconditioning from back pain Follows [facility] cardiology for nonobstructive CAD (plavix, asa), nonischemic-CMP (entresto). Last office visit 01/2024, stable for yearly routine visit Deep PCP clearance - updated ECHO requested [facility] Active Problems Active Problems: All Active Problems Spondylolisthesis, lumbar region (Acute) Spinal stenosis (Acute) Shoulder pain (Acute) Hip pain (Acute) Physical exam (Acute) Adult general medical exam (Acute) Coronary artery ectasia (Acute) Cardiomyopathy (Acute) Hypertension (Acute) Shoulder pain, right (Acute) Hyperlipidemia (Acute) Obesity (Acute) Screening for prostate cancer (Acute) Gout (Acute) Past Medical History Medical History (Updated 10/23/24 @ 11:22 by Divina Berg RN) Teeth missing Left shoulder pain Tendonitis Arthritis Situational anxiety Weakness of both legs Cardiomyopathy CAD (coronary artery disease) HTN (hypertension) Environmental allergies Seasonal allergies PND (post-nasal drip) Hx of renal calculi Hyperlipidemia Obesity Screening for prostate cancer Gout History of nephrolithotomy with removal of calculi Family History Family History Mother No problems noted. Father No problems noted. Family history of problems with anesthesia: No Surgical History Surgical History Hx of cystoscopy (~1994) History of tonsillectomy (~1954) History of Problems with Anesthesia: No Social History Social History Household Members: None Housing: Apartment Are you a primary career development associate to a significant other at home: No Do you presently have visiting nurse or other home services: No Alcohol intake: current Alcohol intake frequency: does not drink Patient Tobacco Use Status: Never used Tobacco e-Cigarette/Vaping Use: Never Used Second Hand Smoke Exposure: No Use of substances other than those prescribed or required for medical reasons: No Have you been hit, kicked, punched, or otherwise hurt by someone within the past year? If so, by whom?: No Are you DNR?: No Advance Directives: No Advance Directives Information Provided: Yes Advance Directives on File: No Recently lost weight without trying: No Nutrition Risks: No Nutritional Risk Poor oral hygiene: Yes (many missing teeth) service: No Current occupational status: retired Cognitive needs: No Hearing needs: No Vision needs: Yes (GLASSES) Meds Allergies Allergy/AdvReac Type Severity Reaction Status Date / Time Penicillins Allergy Unknown, Verified 11/07/24 06:20 as a child as told by mother Home Medications ?Medication ?Instructions ?Recorded ?Confirmed ?Last Taken ?Type aspirin 81 mg chewable tablet 1 tab PO DAILY 01/10/21 10/30/24 10/28/24 History atorvastatin 40 mg tablet 40 mg PO BEDTIME 01/10/21 10/30/24 11/06/24 History carvedilol 25 mg tablet 25 mg PO BID 01/10/21 10/30/24 11/07/24 History clopidogrel 75 mg tablet 75 mg PO DAILY 01/10/21 10/30/24 10/28/24 History chlorthalidone 25 mg tablet 12.5 mg PO DAILY 03/22/23 10/30/24 11/06/24 History valsartan 320 mg tablet 320 mg PO DAILY 03/22/23 10/30/24 11/06/24 History Exam Height,Weight and Vital Signs: Height 5 ft 8.11 in Weight 104.326 kg Last Vital Signs Pulse 80 10/23/24 10:12 Resp 16 10/23/24 10:12 BP 142/80 H 10/23/24 10:12 Pulse Ox 96 10/23/24 10:12 O2 Del Method Room Air 10/23/24 10:12 Airway Loose/Missing/Broken Teeth: Yes (Poor dentition. Broken/missing. Pt denies loose) Heart: RRR Lungs: CTAB Assessment and Plan Assessment Anesthesia Assessment: Anesthesia Plan Discussed and PAT Visit Final Anesthetic Review Family History of Problems with Anesthesia: No History of Problems with Anesthesia: No Documented by User: Coral Mcknight DO 11/07/24 08:21 HPI - Anesthesia Eval Consult details Narrative: 74yo M for L4-5 Oblique Lumbar Interbody Fusion, 11/07/24 No recent illness No CP. Some MACDONALD r/t deconditioning from back pain Follows [facility] cardiology for nonobstructive CAD (plavix, asa), nonischemic-CMP (entresto). Last office visit 01/2024, stable for yearly routine visit EF 40-45% PMFSH Past Medical History Medical History (Updated 10/23/24 @ 11:22 by Divina Berg RN) Teeth missing Left shoulder pain Tendonitis Arthritis Situational anxiety Weakness of both legs Cardiomyopathy CAD (coronary artery disease) HTN (hypertension) Environmental allergies Seasonal allergies PND (post-nasal drip) Hx of renal calculi Hyperlipidemia Obesity Screening for prostate cancer Gout History of nephrolithotomy with removal of calculi Family History Family History Mother No problems noted. Father No problems noted. Family history of problems with anesthesia: No Surgical History Surgical History Hx of cystoscopy (~1994) History of tonsillectomy (~1954) History of Problems with Anesthesia: No Social History Social History Household Members: None Housing: Apartment Are you a primary career development associate to a significant other at home: No Do you presently have visiting nurse or other home services: No Alcohol intake: current Alcohol intake frequency: does not drink Patient Tobacco Use Status: Never used Tobacco e-Cigarette/Vaping Use: Never Used Second Hand Smoke Exposure: No Use of substances other than those prescribed or required for medical reasons: No Have you been hit, kicked, punched, or otherwise hurt by someone within the past year? If so, by whom?: No Are you DNR?: No Advance Directives: No Advance Directives Information Provided: Yes Advance Directives on File: No Recently lost weight without trying: No Nutrition Risks: No Nutritional Risk Poor oral hygiene: Yes (many missing teeth) service: No Current occupational status: retired Cognitive needs: No Hearing needs: No Vision needs: Yes (GLASSES) Meds Allergies Allergy/AdvReac Type Severity Reaction Status Date / Time Penicillins Allergy Unknown, Verified 11/07/24 06:20 as a child as told by mother Home Medications ?Medication ?Instructions ?Recorded ?Confirmed ?Last Taken ?Type aspirin 81 mg chewable tablet 1 tab PO DAILY 01/10/21 10/30/24 10/28/24 History atorvastatin 40 mg tablet 40 mg PO BEDTIME 01/10/21 10/30/24 11/06/24 History carvedilol 25 mg tablet 25 mg PO BID 01/10/21 10/30/24 11/07/24 History clopidogrel 75 mg tablet 75 mg PO DAILY 01/10/21 10/30/24 10/28/24 History chlorthalidone 25 mg tablet 12.5 mg PO DAILY 03/22/23 10/30/24 11/06/24 History valsartan 320 mg tablet 320 mg PO DAILY 03/22/23 10/30/24 11/06/24 History Exam Exam Date and Time: 11/07/24724 Height,Weight and Vital Signs: Height 5 ft 8.11 in Weight 104.326 kg Last Vital Signs Pulse 80 10/23/24 10:12 Resp 16 10/23/24 10:12 BP 142/80 H 10/23/24 10:12 Pulse Ox 96 10/23/24 10:12 O2 Del Method Room Air 10/23/24 10:12 Vital Signs Pulse Rate 80 10/23/24 10:12 Respiratory Rate 16 10/23/24 10:12 Blood Pressure 142/80 H 10/23/24 10:12 Pulse Oximetry 96 10/23/24 10:12 Oxygen Delivery Method Room Air 10/23/24 10:12 Temperature 98 F 11/07/24 06:27 Pulse Rate 81 11/07/24 06:27 Respiratory Rate 18 11/07/24 06:27 Blood Pressure 160/96 H 11/07/24 06:27 Pulse Oximetry 92 11/07/24 06:27 Oxygen Delivery Method Room Air 11/07/24 06:27 Airway Mallampati Class: III TM Dist: >3cm Neck ROM: Full Loose/Missing/Broken Teeth: Yes (Poor dentition - multiple broken/missing teeth but patient denies any loose) Heart: S1S2 Assessment and Plan Assessment Anesthesia Assessment: Anesthesia Plan Discussed and Chart Reviewed Final Anesthetic Review Family History of Problems with Anesthesia: No History of Problems with Anesthesia: No NPO: Yes ASA Class: III Final Preanesthetic Review: No Changes in Pt Med Stat, Meds/Allgs Chart Reviewed, Consent Obtained/Reviewed and Anes Risks/Benef Reviewed Patient Risk: Intermediate Procedure Risk: Intermediate Anesthetic Plan Anesthetic Plan: GA and Agree w/ Assess. and Plan Disposition: Standard PACU
--- NOTE | 2024-11-07 07:44 | PHA.MEDREC ---
Pharmacy Consult ? Medication Reconciliation Pharmacy has REVIEWED the medication reconciliation done by RN. Med list matchs claims.
--- NOTE | 2024-11-07 09:50 | W.PM.OPN ---
Operative Note Operative Note Date of Service: 11/07/24 Narrative: Preop Diagnosis: 1.) L4-5 lumbar spondylolisthesis 2.) Back pain and neurogenic claudication Procedure: 1) L4-5 discectomy, arthrodesis and implantation cage through an anterolateral, retroperitoneal approach 2) L4-5 posterior instrumented fusion 3) allograft 4) injection of 10 cc of Exparel at the bilateral L4 transverse process for a muscular erector spinae block and additional Exparel in paravertebral tissue for postop management Consent Informed Consent was obtained for this operation. I have explained the nature, purpose and benefits of the operation. I have discussed the risks and benefit of the operation including possible complications or adverse events with patient/family. Alternative(s) were discussed with the patient with their relative benefits and risks as well as the consequences of not accepting the operation were included in obtaining consent. Surgeon: DON OSPINA MD, PHD Procedure Assisted By: tacho Abdullahi Description of Procedure This patient is suffering from back pain and neurogenic claudication symptoms due to an L4-5 spondylolisthesis. The patient was offered an oblique lumbar interbody fusion L4-5 to correct the spondylolisthesis and to indirectly decompress the nervous structures. The procedure and complications were explained. The patient was consented. The patient was brought to the operating room and endotracheally intubated. The patient was turned in a lateral position with the left side up. Prep and drape was done followed by timeout. A small incision was made in the left lower abdominal quadrant. The muscle fascia was opened after which the 3 muscle layer was split to enter the retroperitoneal space. Dilators were docked in the anterior one third of the L4-5 disc space followed by a retractor. The retractor was opened. The L4-5 disc space was exposed. An annulotomy was done after which an elevator Richards was used to release the disc material from its endplates and to perforate the contralateral side. A partial discectomy was done. An 8 and 10 mm height trial implant was inserted. The discectomy was completed. The endplates were prepared. An 10 x 50 mm with 6 degree lordosis 4 web cage filled with allograft was inserted into the disc space under fluoroscopic guidance. This resulted in correction of the spondylolisthesis. The retractor was removed. Hemostasis was done. The incision was closed in 2 layers. Steri-Strips used to approximate incision. An OpSite with Tegaderm was used to cover the incision. This marked first part of the procedure. The patient was turned prone on the Caleb spine table. 2C arms were installed for fluoroscopy. Prep and drape was done followed by a second timeout. Injection of 10 cc of Exparel at the bilateral L4 transverse processi for a muscular erector spinae block. Two paramedian incisions were made lateral from the L4 and L5 pedicles. The muscle fascia was opened after which the muscle layer was split bluntly to expose the posterolateral gutter. The following steps were taken. A pediguard tap was used to create a transpedicular trajectory into the vertebral body. A K wire was placed. A specially designed instrument was advanced over the K wire to decorticate the posterolateral gutter in preparation for the posterolateral fusion. A pedicle screw was advanced over the K wire and the K wire was removed. The steps were done for the bilateral L4 and L5 pedicles. A total of 4 screws were placed with a diameter of 6.5 x 45 mm. Pedicle screws were connected with 45 mm gregor bilaterally and locked down with locking caps. The extension towers were removed. The posterolateral gutter was filled with allograft to complete the posterolateral L4-5 fusion Hemostasis was done and the incision was closed in 2 layers. Steri-Strips were used to approximate the incision. An OpSite with tegaderm was used to cover the incision. All sponge and needle counts were correct. Patient was extubated and transferred in stable is to recovery room. Anesthesia: General Estimated Blood Loss (ml): 75 Duration of Surgery: 2 hours Complications: None Postoperative Plan: Admit to inpatient for clinical observation
[2024-11-07 13:45] LABS: Glucose, Whole Blood 124 mg/dL (60-115)
[2024-11-07] MEDS: 0.9 % Sodium Chloride 1,000 ML 75 ML IVCONT (13:54)
[2024-11-07] MEDS: Ketorolac Tromethamine 15 MG/ML VIAL IVPUSH ×2 (15:06→21:23)
[2024-11-07] MEDS: Acetaminophen 1,000 MG/100 ML PIGGYBACK 400 MG IV ×2 (15:07→21:23)
[2024-11-07] MEDS: vancomycin HCL 1,000 MG in 0.9 % Sodium Chloride 250 ML 270 MG IV (18:08)
[2024-11-07] MEDS: Atorvastatin Calcium 40 MG TABLET PO (19:17)
[2024-11-07] MEDS: carvediloL 25 MG TABLET PO (19:17)
[2024-11-07] MEDS: Docusate Sodium 100 MG CAPSULE PO (19:17)
[2024-11-07] MEDS: oxyCODONE HCl Immed Release 5 MG TABLET PO (21:24)
[2024-11-08 03:16] VITALS: BP 105/58; PULSE 95; RESP 18; TEMP 36.7; O2SAT 94
[2024-11-08] MEDS: Acetaminophen 1,000 MG/100 ML PIGGYBACK 400 MG IV (04:01)
[2024-11-08] MEDS: Ketorolac Tromethamine 15 MG/ML VIAL IVPUSH (04:01)
[2024-11-08] MEDS: 0.9 % Sodium Chloride 1,000 ML 75 ML IVCONT (04:02)
--- NOTE | 2024-11-08 07:04 | HO.NEURO.PN ---
Neurosurgery Operative Note Date of Service: 11/08/24 Narrative: POD: 1 Procedure: L4-5 OLIF Fernando is a pleasant 74 year old male who underwent L4-[address] Rvias. He is currently admitted to [facility]. He was seen lying in bed this morning. Patient was seen x 2 today. He initially reported this morning he was very hesitant / scared to get out of bed and ambulate. Despite this he reported minimal pain, and feel his symptoms overall are better than before surgery. He was able to work with PT later this afternoon after we saw him, who reported he was ambulating well based on their note. He has been voiding well and tolerating his current diet. Afebrile, vital signs stable. Full strength in his bilateral lower extremities on examination today. Exam seems consistent with preop in terms of strength. Back & anterolateral dressings have some staining without signs of hematoma. No active sanguineous drainage. Area is dry. Plan: Pleasant 74 year old male who underwent L4-5 OLIF yesterday. Patient is progressing normally / as expected. Patient meets criteria to be medically discharged home. He was seen at bedside with Dr. Rivas. I wioll send in a short course of Oxycodone to help him with pain control. Ricki Rivas MD,PhD [facility]
[2024-11-08 07:18] VITALS: BP 112/58; PULSE 94; RESP 18; TEMP 36.2; O2SAT 93
[2024-11-08] MEDS: Docusate Sodium 100 MG CAPSULE PO (07:44)
[2024-11-08] MEDS: Valsartan 320 MG TABLET PO (07:44)
[2024-11-08] MEDS: hydroCHLOROthiazide 12.5 MG TABLET PO (07:44)
[2024-11-08] MEDS: carvediloL 25 MG TABLET PO (07:44)
[2024-11-08] MEDS: Aspirin 81 MG TAB.CHEW PO (07:44)
--- NOTE | 2024-11-08 09:13 | P.DS_ITS ---
DS: Providers Provider Date of Service: 11/08/24 Date of admission: 11/07/24 06:19 Date of discharge: 11/08/24 Primary care physician: Luis Terry MD DS: Summary Time Attestation Discharge Coordination Time (in mins): 12 Quality: Safe Use of Opioids Does Pt have an Active Cancer Diagnosis on the Problem List?: No Quality: Stroke Does the patient have a stroke diagnosis?: No Physical Exam Vital Signs: Vital Signs: Last Vital Signs Temp 97.2 F 11/08/24 07:18 Pulse 94 11/08/24 07:18 Resp 18 11/08/24 07:18 BP 112/58 L 11/08/24 07:18 Pulse Ox 93 11/08/24 07:18 O2 Del Method Nasal Cannula 11/08/24 07:18 O2 Flow Rate 1 11/08/24 07:18 BMI result Body Mass Index 35.4 DS: Data Data Completed and Pending Labs on day of discharge: Laboratory Results - last 24 hr 11/07/24 12:45 POC Glucose 124 H Discharge Plan Discharge Anticipated Discharge Date/Time: 11/08/24 09:14 Patient Disposition: Home, Self-Care Discharge Diagnosis: s/p L4-5 OLIF Referrals: Luis Terry MD [Primary Care Provider] - 1 Week Discharge Medications: New oxycodone 5 mg tablet 5 mg PO Q4H PRN (Reason: pain) Qty: 30 0RF Rx Instructions: Partial Fill upon patient request. Continued allopurinol 300 mg tablet 300 mg PO DAILY Qty: 90 0RF atorvastatin 40 mg tablet 40 mg PO BEDTIME carvedilol 25 mg tablet 25 mg PO BID valsartan 320 mg tablet 320 mg PO DAILY chlorthalidone 25 mg tablet 12.5 mg PO DAILY (DME) cane Device See Rx Instructions .Route Qty: 1 0RF Rx Instructions: As directed Held clopidogrel 75 mg tablet 75 mg PO DAILY Hold Instructions: Resume on 11/09/24. aspirin 81 mg tablet,chewable 1 tab PO DAILY Hold Instructions: Resume on 11/11/24. Discharge Orders: Discharge Order (Routine); Ordered 11/08/24 Ordered By: Ricki Maier Diet: Advance to usual diet Activity on Discharge: As tolerated Stand Alone Forms: Patient Portal Discharge page Print Language: Japanese Activity Restrictions/Additional Instructions: After your spinal surgery we ask you to observe the following restrictions/guidelines: Activity: It is normal to feel some discomfort as you increase your activity, but that will improve with time. We ask you avoid heavy lifting or acitivities that cause pain. As a general rule, 8lbs is a safe limit for lifting right after surgery. Walk as much as you feel comfortable but not to exhaustion. You will feel extra tired the first few days after surgery. Stay well hydrated. It is OK to walk up and down stairs You may return to driving when you are off narcotics (such as vicodin, oxycodone, dilaudid, etc), and you are back to normal functional capacity. If you have any concerns please check with office before driving. Return to work is specific to each patient and each surgery, so please speak with your doctor/PA at first follow up. Please bring paperwork such as FMLA at that time if you need it filled out. Medications: You may resume your clopidogrel tomorrow. Please hold her aspirin until Wednesday. We recommend you take 1,000mg Tylenol every 8 hours for the first few weeks after surgery, if you do not have any liver issues and can tolerate this medication. Do not exceed 4,000mg daily. We will give you a short supply of narcotics after surgery (usually one weeks worth). If you need more please call the office but do not use more than prescribed. You will need to give our office 48 hours notice if you need narcotics refilled and we do not fill narcotics on weekends or evenings. If you are on a narcotic, it is a good idea to take a stool softener such as colace or senna to avoid constipation If you take blood thinner such as aspirin, Plavix, Coumadin, Effient, Eliquis etc for conditions such as Afib, DVT, Pulmonary embolus, coronary disease, stents etc please speak with your surgeon about specific details as to when you can resume these medications. You can resume NSAIDs on post op day 1 (eg: Motrin, Naproxen, etc). Follow up: Please call the office, , after surgery to arrange a 3 week follow up for wound check. Wound Care: You may remove your dressing on the first day after surgery. ?You may ?leave open to air. Please do not remove the steri strips underneath. they will fall off on their own in one week. IT IS NORMAL FOR THE WOUND TO OOZE OR BE BLOODY FOR A FEW DAYS AFTER SURGERY. ?IF THIS HAPPENS JUST PLACE NEW DRESSING OVER IT TO AVOID STAINING CLOTHES. You may shower on post op day # 1 We ask that you do not let the water soak the wound. If it does get wet, just towel dry lightly. Please do not scrub your incision or place any type of chemical/ointment on the wound. No tub baths, pools or jacuzzis for one month. If you have any leaking or redness from your wound, or fevers, please call the office. Care Plan Goals: Return to normal activity as tolerated Health Concerns: None Plan of Treatment: Follow-up in clinic in 2-3 weeks Assessment: POD: 1 Procedure: L4-5 OLIF Fernando is a pleasant 74 year old male who underwent L4-5 [address] Rivas. He is currently admitted to [facility]. He was seen lying in bed this morning. Patient was seen x 2 today. He initially reported this morning he was very hesitant / scared to get out of bed and ambulate. Despite this he reported minimal pain, and feel his symptoms overall are better than before surgery. He was able to work with PT later this afternoon after we saw him, who reported he was ambulating well based on their note. He has been voiding well and tolerating his current diet. Afebrile, vital signs stable. Full strength in his bilateral lower extremities on examination today. Exam seems consistent with preop in terms of strength. Back & anterolateral dressings have some staining without signs of hematoma. No active sanguineous drainage. Area is dry. Plan: Pleasant 74 year old male who underwent L4-5 OLIF yesterday. Patient is progressing normally / as expected. Patient meets criteria to be medically discharged home. He was seen at bedside with Dr. Rivas. I wioll send in a short course of Oxycodone to help him with pain control. Ricki Rivas MD,PhD [facility]
--- NOTE | 2024-11-08 09:20 | MHC.CM.PN ---
Addendum entered by Tyesha Amor 11/08/24 11:13: [facility] HAS ACCEPTED FOR HOME P.T. DAUGHTER/PT AWARE. Addendum entered by Tyesha Amor 11/08/24 09:54: [facility] UNABLE TO ACCEPT. OTHER REFERRALS SENT TO CONTRACTED AGENCIES. AWAITING ACCEPTANCE Original Note: [facility] DELIVERED PT LIVES ALONE, IS FUNCTIONALLY INDEPENDENT, USES [facility] PR[facility]. NO SERVICES. +HCP PCP DR. GOODEN/WILLIE CHOWDHURY. DP: PT HAS BEEN MEDICALLY CLEARED FOR DC HOME WITH [facility]. PT HAS NO PREFERENCE TO [facility]Y BUT WOULD LIKE [facility] IF ABLE. REFERRAL SENT. DAUGHTER WILL TRANSPORT HOME. PT WILL BE STAYING WITH DAUGHTER AT [address] [place] [address] IN [place] THROUGH THE WEEKEND.
[2024-11-08] MEDS: oxyCODONE HCl Immed Release 5 MG TABLET PO (09:30)
[2024-11-08] MEDS: Acetaminophen 325 MG TABLET 975 MG PO (09:30)
[2024-11-08 10:53] VITALS: BP 108/57; PULSE 93; RESP 16; TEMP 36.3; O2SAT 93
--- NOTE | 2024-11-08 12:00 | HO.POSTANES ---
Post Anesthesia Evaluation Post Anesthesia Evaluation Date of Service: 11/08/24 Vital Signs: Vital Signs Temp Pulse Resp BP Pulse Ox O2 Del Method O2 Flow Rate 11/08/24 10:53 97.3 F 93 16 108/57 L 93 Room Air 11/08/24 07:18 97.2 F 94 18 112/58 L 93 Nasal Cannula 1 11/08/24 03:16 98.1 F 95 18 105/58 L 94 Nasal Cannula 1 Anesthesia: General Endotracheal-GETA Mental Status: Awake Pain Control: Satisfactory Nausea/Vomiting: None Hydration: Adequate Anesthesia-Related Issues: No Anes. Related Issues
--- NOTE | 2024-11-08 13:32 | P.F2F_ITS ---
Service Date Service Date: 11/08/24 Encounter Date of encounter: 11/08/24 Reasons for Services Signs and symptoms assessed: S/P L4-5 Lumbar fusion Reason for physical therapy: therapeutic exercises, restore joint function, gait/transfer training and ADL training Homebound: Leaving the home is medically contraindicated at this time without the asist of a device and/or another person due th the listed conditions above and below. Reason homebound: unsteady gait / fall risk, leg weakness, pain with ambulation, pain with transfers, poor balance / fall risk and weakness related to hospital stay Certification: Based on the above findings, I certify that this patient is confined to the home and needs intermittent half-way care, physical therapy and/or speech therapy, or continues to need occupational therapy. The patient is under my care, and I have initiated the establishment of the plan of care. The patient will be followed by a physician who will periodically review the plan of care. Time Spent With Patient Time: Total time managing care of this patient today 12 minutes.
== END 2024-11-08 13:29 | disposition home or self-care (01) | DRG 451 ==
LOC: HO.SSSA 06:23 → HO.S3 10:43
PROVIDERS: Neurological Surgery; Nurse Practitioner; Admitting Provider Physician Assistant; PCP Internal Medicine; Visit Provider Physician Assistant
PROC: 0SG00A0 Fusion of Lumbar Vertebral Joint with Interbody Fusion Device, Anterior Approach, Anterior Column, Open Approach (ICD-10-PCS; principal; 2024-11-07 07:30)
DX: M43.16 Spondylolisthesis, lumbar region (principal); I25.10 Atherosclerotic heart disease of native coronary artery without angina pectoris; Z79.02 Long term (current) use of antithrombotics/antiplatelets; Z79.82 Long term (current) use of aspirin; Z79.899 Other long term (current) drug therapy
CPT/HCPCS: 36415; 80048; 82947; 83880; 85027; 86850; 86900; 86901; 93005; 97116; 97162; C1713; J0131; J0665; J0666; J1100; J1885; J2003; J2250; J2371; J2405; J2704; J3010; J3370; J3371; L8699

== ENCOUNTER → 2024-11-07 06:19 | Outpatient (BNV) | payer MEDICARE, SELFPAY | PROVIDERS: Admitting Provider Physician Assistant; PCP Internal Medicine; Visit Provider Neurological Surgery | DX: M43.16 Spondylolisthesis, lumbar region (principal) | CPT/HCPCS: 20930; 22558; 22612; 22840; 22853; 99024; 99499; G0180 ==

== ENCOUNTER 2024-11-28 13:01 | Outpatient (REF) | payer MEDICARE, SELFPAY ==
--- OUTSIDE RECORDS SUMMARY | 2024-11-28 16:39 | XMS_ITS | Clinical Summary ---
Author Organization [facility] Address [address] [place] [address] Care Team Providers Care Certified Financial Planner Name Role Phone Unavailable Primary Care Provider [...] - PPSV23) 06/03/2020 Hypertension Screening (#1) 12/28/2023 [id number] ( season) 2024 Imm-Influenza (#1) 2024 06/03/2019 Alcohol and Drug Screen 08/16/2024 Depression Annual Screen 08/16/2024 [facility]
== END 2024-11-28 13:02 | disposition home or self-care (01) ==
LOC: HO.HOSX 13:01
PROVIDERS: Visit Provider Physician Assistant
DX: Z98.1 Arthrodesis status (principal)
CPT/HCPCS: 99212

== ENCOUNTER 2024-11-28 13:01 | Outpatient (AMB) | payer MEDICARE, SELFPAY ==
--- NOTE | 2024-11-28 13:03 | HO.SPINEOV ---
Intake Visit Reasons: 1st post op Intake Note: Mr. Killian is here today for his 1st post op. 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 Rivas about 3 weeks ago. To recap he was initially seen in clinic for low back pain radiating down both his legs into his hamstrings and calves, left greater than right. He reports that his pain has significantly improved since his surgery. He is ambulating around the home much better, and trying to stay up out of bed and active. He has not been utilizing his narcotic pain medication, he states that he only used it for the 1st few days after surgery, then began using boak-vyv-alzsfes medications. No new neurological deficits. The patient ambulates well with the assistance of a cane. His posterior and anterolateral incision sites are closed and well healing. I removed the Steri-Strips overlying these incision sites during this visit. I would like cleanse to follow up with us again in 6 weeks with a set of x-rays. Ricki Rivas MD,PhD [facility] Orders: Orders XR lumbar spine 4V min Today Z98.1 - Arthrodesis status Coding Level of Care Code Global (19092) Diagnoses S/P lumbar spinal fusion Z98.1
--- OUTSIDE RECORDS SUMMARY | 2024-11-28 15:52 | XMS_ITS | Continuity of Care Document ---
Author Organization [facility] Address [address] [place] [phone] Care Team Providers Care Hand Molder Meat Name Role Phone Harrison GARCIA, Luis Salinas Primary Care Physician Encounter [facility] Date(s): 10/23/24 - 11/22/24 [facility] [address] [place] [phone] Encounter Type: Triage Allergies, Adverse Reactions, Alerts Substance Criticality Severity Reaction Reaction Severity Status penicillin Rash Active lisinopril 1 Active 1Dry coughing cough Immunizations Given and Recorded Vaccine Date Status Refusal Reason pneumococcal 13-valent vaccine 1 06/03/19 Given influenza virus vaccine, inactivated 06/03/19 Give n 1Result Comment: 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 Medications allopurinol 300 mg oral tablet 300 mg, 1, tablet, By Mouth, Daily, # 30 tablet, Refills 0, Maintenance, 12/24/21 8:19:00 AM EDT, Partial fill upon patient request if the prescription is for a schedule II opioid drug. Start Date: 12/24/21 Status: Ordered Quantity: 30.0 Unit: tablet Repeat number: 1 Aspirin Low Dose 81 mg oral tablet, chewable 1 tablet, By Mouth, Daily, # 90 tablet, 1 Refills, Maintenance, 10/06/23 7:15:00 AM EST, [facility] STORE [id number], 173, cm, 01/05/23 12:38:00 EDT, Height Start Date: 10/06/23 Status: Ordered Quantity: 90.0 Unit: tablet Repeat number: 1 atorvastatin 40 mg oral tablet 1 tablet, By Mouth, Daily at bedtime, # 90 tablet, 3 Refills, Maintenance, 04/26/24 11:14:00 AM EDT,[facility]/pharmacy #[id number], 173, cm, 01/18/24 13:07:00 EDT, Height Start Date: 04/26/24 Status: Ordered Quantity: 90.0 Unit: tablet Repeat number: 4 Blood Pressure Monitor See Instructions, # 1 each, Refills 0, Tot. Refills 0, Maintenance, home blood pressure cuff, 01/05/23 12:54:00 PM EDT, Supply Start Date: 01/05/23 Status: Ordered Quantity: 1.0 Unit: each Repeat number: 1 carvedilol 25 mg oral tablet 1, tablet, By Mouth, 2 times a day, # 180 tablet, Refills 3, Tot. Refills 3, Maintenance, 08/04/24 10:51:00 AM EST, Route to Pharmacy Electronically, [facility]/pharmacy #1234, 173, cm, 01/18/24 13:07:00 EDT, Height Start Date: 08/04/24 Status: Ordered Quantity: 180.0 Unit: tablet Repeat number: 4 chlorthalidone 25 mg oral tablet See Instructions, TAKE 1/2 OF A TABLET BY MOUTH DAILY FOR 30 DAYS, # 45 tablet, Refills 1, Maintenance, 11/13/24 7:29:00 AM EDT, Instructions Replace Required Details, Route to Pharmacy Electronically, [facility] STORE [id number], 173, cm, 01/18/24 13:07:00 EDT, Height Start Date: 11/13/24 Status: Ordered Quantity: 45.0 Unit: tablet Repeat number: 1 clopidogrel 75 mg oral tablet 1, tablet, By Mouth, Daily, # 90 tablet, Refills 3, Tot. Refills 3, 12/22/22 3:44:00 PM EDT, Route toPharmacy Electronically, [facility]/pharmacy #[id number], 173, cm, 12/24/21 8:17:00 EDT, Height Start Date: 12/22/22 Status: Ordered Quantity: 90.0 Unit: tablet Repeat number: 4 clopidogrel 75 mg oral tablet 1, tablet, By Mouth, Daily, # 90 tablet, Refills 3, Maintenance, 12/09/23 11:04:00 AM EDT, Route to Pharmacy Electronically, [facility] STORE [facility]34, 173, cm, 01/05/23 12:38:00 EDT, Height Start Date: 12/09/23 Status: Ordered Quantity: 90.0 Unit: tablet Repeat number: 1 valsartan 320 mg oral tablet 1 tablet, By Mouth, Daily, # 90 tablet, 3 Refills, Maintenance, 10/16/24 7:53:00 AM EST, [id number], 173, cm, 01/18/24 13:07:00 EDT, Height Start Date: 10/16/24 Status: Ordered Quantity: 90.0 Unit: tablet Repeat number: 1 Problem List Condition Confirmation Course Effective Dates Status H ealth Status Informant Cardiomyopathy Confirmed Active Coronary artery ectasia Confirmed Active Hypertension Confirmed Active Obese class I Confirmed Active Social History Social History Type Response Smoking Status Never (less than 100 in lifetime) entered on: 06/16/19 Sex Sex Representation Male (finding) Patient Care team information Care Team Personnel Name: Harrison GARCIA, Luis Salinas Position: Reference Physician Member Role: PCP Address: [address] [place] [address] Telecom: Care Team Related Persons Name: MAYA GIVENS Name: ALIA PEREYRA Insurance Providers Guarantor name: CHAITANYA Health Plan Information #: 1 Payer: [facility] Member Number: NA Policy Number: NA Group Number: NA
--- OUTSIDE RECORDS SUMMARY | 2024-11-28 15:52 | XMS_ITS | Clinical Summary ---
Author Organization [facility] Address [address] [place] [address] Care Team Providers Care Service Delivery Supervisor Name Role Phone Unavailable Primary Care Provider [...] 1950 Lipid Screening 1950 Tobacco Screening 1950 Imm-DTaP/Tdap/Td (1 - Tdap) 1969 CT Colonography 1995 Colonoscopy 1995 Colorectal Cancer Screening 1995 FIT/gFOBT 1995 Fecal DNA 1995 Flexible Sigmoidoscopy 1995 Imm-Zoster, Recombinant (1 of 2) 2000 Abdominal Aortic Aneurysm Screening 2015 Falls Prevention 2015 Imm-Pneumococcal 65+ (2 of 2 - PPSV23) 06/03/2020 Hypertension Screening (#1) 12/28/2023 [id number] ( season) 2024 Imm-Influenza (#1) 2024 06/03/2019 Alcohol and Drug Screen 08/16/2024 Depression Annual Screen 08/16/2024 [facility]
== END 2024-11-28 13:25 | disposition home or self-care (01) ==
LOC: HO.HNS 13:01
PROVIDERS: Visit Provider Physician Assistant
DX: Z98.1 Arthrodesis status (principal)
CPT/HCPCS: 99024

== ENCOUNTER 2025-01-09 08:27 | Outpatient (REF) | payer MEDICARE, SELFPAY ==
--- NOTE | ~2025-01-09 | XR_ITS ---
CLINICAL HISTORY: Z98.1 - Arthrodesis status --- Additional Notes or Special Instructions: AP LAT FLE X EX 4 views lumbar spine Comparison: None Findings: No fractures or dislocations. Normal vertebral body alignment. There is L4-5 ORIF and interbody fusion with no displacement of hardware. There is advanced narrowing of the L5-S1 disc space. Sacroiliac joints unremarkable. Impression: Normal lumbar spine alignment. No acute skeletal abnormality. L4-5 ORIF with no breakage of the hardware. This document has been electronically signed by: Wilbert Hopson MD on 01/10/2025 17:12:59
--- OUTSIDE RECORDS SUMMARY | 2025-01-10 08:45 | XMS_ITS | Clinical Summary ---
Author Organization [facility] Address [address] [place] [address] Care Team Providers Care Oral And Maxillofacial Pathologist Name Role Phone Unavailable Primary Care Provider [...] - PPSV23) 06/03/2020 Hypertension Screening (#1) 12/28/2023 [id number] ( season) 2024 Imm-Influenza (#1) 2024 06/03/2019 Alcohol and Drug Screen 08/16/2024 Depression Annual Screen 08/16/2024 [facility]
== END 2025-01-09 08:28 | disposition home or self-care (01) ==
LOC: HO.HOSX 08:27
PROVIDERS: Visit Provider Physician Assistant
DX: Z98.1 Arthrodesis status (principal)
CPT/HCPCS: 72110; 99212

== ENCOUNTER 2025-01-09 13:18 | Outpatient (AMB) | payer MEDICARE, SELFPAY ==
--- OUTSIDE RECORDS SUMMARY | 2025-01-09 13:22 | XMS_ITS | Clinical Summary ---
Author Organization [facility] Address [address] [place] [address] Care Team Providers Care Meringuer Name Role Phone Unavailable Primary Care Provider [...] - PPSV23) 06/03/2020 Hypertension Screening (#1) 12/28/2023 [id number] ( season) 2024 Imm-Influenza (#1) 2024 06/03/2019 Alcohol and Drug Screen 08/16/2024 Depression Annual Screen 08/16/2024 [facility]
--- NOTE | 2025-01-09 13:55 | HO.SPINEOV ---
Intake Visit Reasons: 2nd post op with Xrays Intake Note: Mr. Killian is here today for his 2nd post op with x-rays. 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 Rivas about 3 weeks ago. To recap he was initially seen in clinic for low back pain radiating down both his legs into his hamstrings and calves, left greater than right. He reports that his pain has resolved since surgery, and he feels overall much better than he did prior to surgery. He is overall very sastisfied with his surgery. We reviewed his x-RAY imaging during this encounter which shows stable placement of posterior instrumentation with no changes from fluoro. No new neurological deficits. The patient ambulates well with the assistance of a cane. His posterior and anterolateral incision sites are closed and well healed. I would like Fernando to follow up with us again 1 year out from surgery. I will obtain a CT scan 10 months out from surgery to evaluation for fusion progress. Ricki Rivas MD,PhD [facility] Orders: Orders CT lumbar spine wo IV con 09/09/25 Z98.1 - Arthrodesis status Coding Level of Care Code Global (33752) Diagnoses S/P lumbar spinal fusion Z98.1
== END 2025-01-09 14:17 | disposition home or self-care (01) ==
LOC: HO.HNS 13:18
PROVIDERS: Visit Provider Physician Assistant
DX: Z98.1 Arthrodesis status (principal)
CPT/HCPCS: 99024

== ENCOUNTER → 2025-01-09 13:22 | Outpatient (BNV) | payer MEDICARE, SELFPAY | PROVIDERS: Visit Provider Radiology Diagnostic Radiology | DX: M51.369 Other intervertebral disc degeneration, lumbar region without mention of lumbar back pain or lower extremity pain (principal) | CPT/HCPCS: 72110 ==

== ENCOUNTER 2025-02-09 10:50 | Outpatient (AMB) | payer MEDICARE, SELFPAY ==
--- NOTE | 2025-02-09 10:53 | A.OFFPC_ITS ---
Vital Signs 02/09/25 10:56 Height 5 ft 4.5 in Weight 231 lb 8 oz BMI 39.1 BP 130/70 Blood Pressure Location Lt brachial Position Sitting Respiration 18 Pulse 83 Pulse Source Pulse Oximeter Temp 97.3 F Temp Source Temporal Artery Scan Pulse Oximetry (%) 93 Oxygen Delivery Method Room Air Intake Visit Reasons: Transfer From [facility] 3 month f/u - see comments Intake Note: Patient is here today for MAURI from Dr Terry. 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 Instructions: Resume on 11/11/24. atorvastatin 40 mg PO BEDTIME cane As directed carvedilol 25 mg PO BID chlorthalidone 25 mg PO DAILY clopidogrel 75 mg PO DAILY Held on 11/08/24. Instructions: Resume on 11/09/24. valsartan 320 mg PO DAILY Tobacco use date assessed: 02/09/25 Fall risk assessment: No Falls in past year Last assessed Fall Risk: 02/09/25 Dental Screening Dental Screen Date: 10/27/24 HPI Transfer From [facility] 3 month f/u - see comments HPI Details The patient is a 74-year-old male presenting for a follow-up on [facility] chronic conditions and post-surgical recovery. The patient is a transfer of care from Dr. Terry who retired couple of months ago. The patient underwent back surgery on November 07, approximately three months ago, performed by Dr. Rivas. Post-surgery, the patient reports impatience with recovery, attempting activities beyond current capabilities, but acknowledges the need for caution to avoid re-injury. Follow-up with the surgeon indicated proper healing, with x-rays confirming satisfactory recovery, and the patient is advised to return in a year. 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 He sees his turntable operator annually, with the last visit occurring a few weeks prior to this appointment. The patient reports hypercalcemia, potentially linked to chlorthalidone, a medication he has been on for several years. The dosage was adjusted two years ago, but recently returned to the original 25 mg dose. The patient has hypertriglyceridemia and low HDL cholesterol, with triglycerides mildly elevated and HDL close to the desired level. Fish oil supplementation was recommended to improve HDL levels. The patient has a history of gout affecting the left big toe, which has been well-managed with allopurinol, resulting in no recent flare-ups. The patient experiences seasonal allergies, occasionally leading to labored breathing, but denies any chest pain or palpitations. He does not use inhalers and reports improvement over the years. The patient was advised to consider cataract surgery due to deteriorating vision, with symptoms of cloudiness and excessive tearing in bright light. He plans to pursue this now that his back condition has stabilized. [facility] Medical History Teeth missing Left shoulder pain Tendonitis Arthritis Situational anxiety Weakness of both legs Cardiomyopathy CAD (coronary artery disease) HTN (hypertension) Environmental allergies Seasonal allergies PND (post-nasal drip) Hx of renal calculi Hyperlipidemia Obesity Screening for prostate cancer Gout History of nephrolithotomy with removal of calculi Surgical History History of back surgery Hx of cystoscopy (~1994) History of tonsillectomy (~1954) Family History Mother No problems noted. Father No problems noted. Social History Household Members: None Housing: House Are you a primary hospice spiritual care coordinator to a significant other at home: No Do you presently have visiting nurse or other home services: No 75 years or older and lives alone: No Alcohol intake: current Alcohol intake frequency: does not drink Patient Tobacco Use Status: Never used Tobacco e-Cigarette/Vaping Use: Never Used Second Hand Smoke Exposure: No service: No Current occupational status: retired Cognitive needs: No Hearing needs: No Vision needs: Yes (GLASSES) Questionnaire PHQ-9 Over the last 2 weeks, how often have you been bothered by any of the following problems? 1. Little interest or pleasure in doing things: not at all 2. Feeling down, depressed, or hopeless: not at all 3. Trouble falling or staying asleep, or sleeping too much: not at all 4. Feeling tired or having little energy: not at all 5. Poor appetite or overeating: not at all 6. Feeling bad about yourself - or that you are a failure or have let yourself or your family down: not at all 7. Trouble concentrating on things, such as reading the newspaper or watching television: not at all 8. Moving or speaking so slowly that other people could have noticed. Or the opposite - being so fidgety or restless that you have been moving around a lot more than usual: not at all 9. Thoughts that you would be better off or of hurting yourself in some way: not at all Total score: 0 Depression Screening Interpretation: Positive Depression Screening Done: Yes Source: Developed by Drs. Brant Rodriguez, Maggie Burnette, Antolin Bowser and colleagues, with an educational daron from [employer]. Thrive Questionnaire Date Thrive assessed: 11/08/24 I am a: Patient What is your living situation today?: I have a steady place to live Within the past 12 months, did the food you bought not last and you didn't have the money to get more?: Never true Within the past 12 months, did you worry whether your food would run out before you got money to buy more?: Never true Do you have trouble paying for medicines?: No Do you have trouble getting transportation to medical appointments?: No Do you have trouble paying your heating and electricity bill?: No Do you have trouble taking care of your child, family member or friend?: No Do you have trouble with day-to-day activities such as bathing, preparing meals, shopping, managing finances, etc.?: No Are you currently unemployed and looking for a job?: No Are you interested in more education?: No Please select the resources that you would like help with: None Currently or been in a relationship where the following occur: No concerns reported THRIVE Score: 0 AUDIT C Alcohol Use Questionnaire (AUDIT-C) 1. How often do you have a drink containing alcohol?: Never 3. How often do you have six or more drinks on one occasion?: Never Total Score: 0 ZAID-7 AMB Questionnaire ZAID-7 Date ZAID - 7 assessed: 02/09/25 Feeling nervous, anxious, or on edge: 0 = Not at all Not being able to stop or control worryin = Not at all Worrying too much about different things: 0 = Not at all Trouble relaxin = Not at all Being so restless that it is hard to sit still: 0 = Not at all Becoming easily annoyed or irritable: 0 = Not at all Feeling afraid as if something awful might happen: 0 = Not at all Total ZAID-7 score (0-4 normal; 5-9 mild; 10-14 moderate; 15-21 severe): 0 Source: Developed by Drs. Brant Rodriguez, Maggie Burnette, Antolin Bowser and colleagues, with an educational daron from [employer]. Review of Systems Const Denies headache(s) Eyes Reports change in vision and Denies loss of vision ENT Denies vertigo, Denies dizziness, Denies headache(s), Reports nasal congestion (On and off-leads to labored breathing) and Denies sore throat Card Denies chest pain, Denies leg edema and Denies lightheadedness Resp Denies cough, Denies hemoptysis and Denies wheezing GI Denies abdominal pain, Denies melena, Denies constipation, Denies diarrhea and Denies vomiting Denies dysuria, Denies urinary frequency and Denies urinary urgency Musc Reports back pain, Denies arthralgias, Denies joint swelling, Denies numbness and Denies tingling Skin/Breast Denies lesions and Denies rash Neuro Denies Abnormal speech present, Denies behavioral changes, Denies vertigo, Denies dizziness, Denies headache(s), Denies loss of vision, Denies memory loss, Denies numbness and Denies tingling Psych Denies anxiety, Denies behavioral changes, Denies depression, Denies memory loss and Denies panic attacks Rico/Lymph Denies easy bleeding and Denies easy bruising Aller/Immun Denies wheezing Physical exam (Primary Care) Vital Signs: Last Vital Signs Temp 97.3 F 02/09/25 10:56 Pulse 83 02/09/25 10:56 Resp 18 02/09/25 10:56 BP 130/70 02/09/25 10:56 Pulse Ox 93 02/09/25 10:56 Oxygen Delivery Method Room Air 02/09/25 10:56 BMI result Body Mass Index 39.1 Tobacco/Smoking Status: Tobacco use Status Tobacco use date assessed 02/09/25 02/09/25 11:03 Patient Tobacco Use Status Never used Tobacco 02/09/25 11:03 e-Cigarette/Vaping Use Never Used 02/09/25 11:03 PHQ-9: PHQ-9 Score PHQ-9: Total score 0 02/09/25 13:06 Depression Screening Interpretation: Positive Thrive Assessment: Date of Thrive Assessment Date Thrive assessed 11/08/24 02/09/25 11:03 Currently or been in a relationship where the following occur: No concerns reported Const General: healthy appearing, no acute distress, alert and awake Nutritional Appearance: well nourished Orientation/consciousness: oriented to person, oriented to place and oriented to time HENMT Ears: TM's normal bilaterally General nose exam: Normal nasal mucous membranes and turbinates present Eyes Conjunctivae: conjunctivae normal Sclerae: sclerae normal Pupils: Equal, round and reactive pupils present Neck Neck: Yes no lymphadenopathy and Yes no JVD Thyroid: Thyroid normal Carotids: no bruits Resp Effort & Inspection: normal respiratory effort and not tachypneic Auscultation: no crackles, no rales, no rhonchi and no wheezes Cardio Rate: regular rate Rhythm: regular rhythm Heart sounds: no murmurs and normal S1 and S2 GI Palpation (GI): Soft to palpation, nontender, no hepatomegaly and no splenomegaly Auscultation: normal bowel sounds General: Yes no CVA tenderness Back/Spine/Pelvis Back: no CVA tenderness Cervical Spine: No Cervical spine tenderness Thoracic/Lumbar Spine: No thoracic spinal tenderness and No lumbar spinal tenderness Skin General skin exam: dry skin and other (BLE hyperpigmentation) Neuro General: oriented to person, oriented to place and oriented to time Cranial nerves: Yes CN's II-XII intact bilaterally and Yes Equal, round and reactive pupils present Speech: No Abnormal speech present Gait exam (Neuro): Normal gait present Motor exam (neuro): no tremor noted Extrem Right upper extremity: full ROM Left upper extremity: full ROM Right lower extremity: full ROM; no edema Left lower extremity: full ROM; no edema Psych Mental Status: mental status grossly normal Speech and movement: Normal speech and movement present Affect: normal affect Attitude: cooperative Thought process: Normal thought process present Coding Level of Care Code Est Pt Level 4 (23768) Diagnoses Hypertension, unspecified type I10 Hypertension type: unspecified Hyperlipidemia, unspecified hyperlipidemia type E78.5 Hyperlipidemia type: unspecified 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 Cardiomyopathy, unspecified type I42.9 Cardiomyopathy type: unspecified Class 2 severe obesity with serious comorbidity and body mass index (BMI) of 39.0 to 39.9 in adult, unspecified obesity type E66.812; E66.01; Z68.39 Body mass index: BMI 39.0-39.9 Obesity classification: adult class 2 (BMI 35 - 39.9) Obesity type: unspecified obesity type Serious obesity comorbidity presence: with serious comorbidity Gout involving toe of left foot, unspecified cause, unspecified chronicity M10.9 Chronicity: unspecified Gout etiology: unspecified cause Gout site: toe Laterality: left Spondylolisthesis, lumbar region M43.16 Vision changes H53.9 Time Spent (min) 38 Assessment & Plan Assessment & Plan (1) Hypertension: Code(s): I10 - Essential (primary) hypertension Category: Medical Qualifiers: Hypertension type: unspecified Qualified Code(s): I10 - Essential (primary) hypertension Plan: Blood pressure 130/70, goal systolic less than 130mmhg Reinforced low-sodium diet Continue valsartan 75 mg daily, chlorthalidone 25 mg daily, carvedilol 25 mg b. i.d. (2) Hyperlipidemia: Code(s): E78.5 - Hyperlipidemia, unspecified Category: Medical Qualifiers: Hyperlipidemia type: unspecified Qualified Code(s): E78.5 - Hyperlipidemia, unspecified Plan: Triglycerides 186, total cholesterol 146, LDL 67, HDL 39, to 08/04/2024 Discussed lifestyle modifications including dietary changes and physical activity Continue atorvastatin 40 mg daily at bedtime Encouraged fish oil (3) Coronary artery ectasia: Code(s): I77.89 - Other specified disorders of arteries and arterioles Category: Medical Plan: Patient continues on dual anti-platelet therapy aspirin and Plavix Follow up with [facility] as scheduled (Celso Cheek MD) (4) Cardiomyopathy: Code(s): I42.9 - Cardiomyopathy, unspecified Category: Medical Qualifiers: Cardiomyopathy type: unspecified Qualified Code(s): I42.9 - Cardiomyopathy, unspecified Plan: EF 15% 05/2019, SINCE IMPROVED TO 40% Continue carvedilol 25 mg b.i.d. and valsartan 320 mg daily (5) Obesity: Code(s): E66.9 - Obesity, unspecified Category: Medical Qualifiers: Body mass index: BMI 39.0-39.9 Obesity classification: adult class 2 (BMI 35 - 39.9) Obesity type: unspecified obesity type Serious obesity comorbidity presence: with serious comorbidity Qualified Code(s): E66.812 - Obesity, class 2; E66.01 - Morbid (severe) obesity due to excess calories; Z68.39 - Body mass index [BMI] 39.0-39.9, adult Plan: Discussed lifestyle modifications including dietary changes and physical activity (6) Gout: Code(s): M10.9 - Gout, unspecified Category: Medical Qualifiers: Chronicity: unspecified Gout etiology: unspecified cause Gout site: toe Laterality: left Qualified Code(s): M10.9 - Gout, unspecified Plan: Asymptomatic. We will check uric acid and advise (7) Spondylolisthesis, lumbar region: Code(s): M43.16 - Spondylolisthesis, lumbar region Category: Medical Plan: Status post L4-[address] Godinez. Bilateral leg radiculopathy resolved. Reports he tries to do too much and he feels the difference and has to start knowing his limitation. Otherwise, he is doing much better. (8) Vision changes: Code(s): H53.9 - Unspecified visual disturbance Category: Medical Plan: Reports that he was told in the past that at some point he will need cataract surgery We will refer the patient to an pharmacy delivery driver Orders: Orders Comprehensive [place]. Panel Fast Today E66.9 - Obesity, unspecified, E78.5 - Hyperlipidemia, unspecified, I10 - Essential (primary) hypertension, I42.9 - Cardiomyopathy, unspecified, I77.89 - Other specified disorders of arteries and arterioles, M10.9 - Gout, unspecified, M25.519 - Pain in unspecified shoulder, M25.559 - Pain in unspecified hip, M43.16 - Spondylolisthesis, lumbar region, M48.00 - Spinal stenosis, site unspecified Hemoglobin A1c Today E66.9 - Obesity, unspecified, E78.5 - Hyperlipidemia, unspecified, I10 - Essential (primary) hypertension, I42.9 - Cardiomyopathy, unspecified, I77.89 - Other specified disorders of arteries and arterioles, M10.9 - Gout, unspecified, M25.519 - Pain in unspecified shoulder, M25.559 - Pain in unspecified hip, M43.16 - Spondylolisthesis, lumbar region, M48.00 - Spinal stenosis, site unspecified Complete Blood Count Auto Diff Today E66.9 - Obesity, unspecified, E78.5 - Hyperlipidemia, unspecified, I10 - Essential (primary) hypertension, I42.9 - Cardiomyopathy, unspecified, I77.89 - Other specified disorders of arteries and arterioles, M10.9 - Gout, unspecified, M25.519 - Pain in unspecified shoulder, M25.559 - Pain in unspecified hip, M43.16 - Spondylolisthesis, lumbar region, M48.00 - Spinal stenosis, site unspecified Lipid Panel Today E66.9 - Obesity, unspecified, E78.5 - Hyperlipidemia, unspecified, I10 - Essential (primary) hypertension, I42.9 - Cardiomyopathy, unspecified, I77.89 - Other specified disorders of arteries and arterioles, M10.9 - Gout, unspecified, M25.519 - Pain in unspecified shoulder, M25.559 - Pain in unspecified hip, M43.16 - Spondylolisthesis, lumbar region, M48.00 - Spinal stenosis, site unspecified TSH reflex Free T4 Today E66.9 - Obesity, unspecified, E78.5 - Hyperlipidemia, unspecified, I10 - Essential (primary) hypertension, I42.9 - Cardiomyopathy, unspecified, I77.89 - Other specified disorders of arteries and arterioles, M10.9 - Gout, unspecified, M25.519 - Pain in unspecified shoulder, M25.559 - Pain in unspecified hip, M43.16 - Spondylolisthesis, lumbar region, M48.00 - Spinal stenosis, site unspecified UA CC w/rflx Micro + Cult Today E66.9 - Obesity, unspecified, E78.5 - Hyperlipidemia, unspecified, I10 - Essential (primary) hypertension, I42.9 - Cardiomyopathy, unspecified, I77.89 - Other specified disorders of arteries and arterioles, M10.9 - Gout, unspecified, M25.519 - Pain in unspecified shoulder, M25.559 - Pain in unspecified hip, M43.16 - Spondylolisthesis, lumbar region, M48.00 - Spinal stenosis, site unspecified Vitamin D 25-OH Total Today E66.9 - Obesity, unspecified, E78.5 - Hyperlipidemia, unspecified, I10 - Essential (primary) hypertension, I42.9 - Cardiomyopathy, unspecified, I77.89 - Other specified disorders of arteries and arterioles, M10.9 - Gout, unspecified, M25.519 - Pain in unspecified shoulder, M25.559 - Pain in unspecified hip, M43.16 - Spondylolisthesis, lumbar region, M48.00 - Spinal stenosis, site unspecified Uric Acid Today E66.9 - Obesity, unspecified, E78.5 - Hyperlipidemia, unspecified, I10 - Essential (primary) hypertension, I42.9 - Cardiomyopathy, unspecified, I77.89 - Other specified disorders of arteries and arterioles, M10.9 - Gout, unspecified, M43.16 - Spondylolisthesis, lumbar region Referrals Ophthalmology Referral H53.9 - Unspecified visual disturbance
[2025-02-09 10:56] VITALS: BP 130/70; PULSE 83; RESP 18; TEMP 36.3; O2SAT 93; BMI 39.1
--- OUTSIDE RECORDS SUMMARY | 2025-02-09 11:56 | XMS_ITS | Clinical Summary ---
Author Organization [facility] Address [address] [place] [address] Care Team Providers Care Global Lead Name Role Phone Unavailable Primary Care Provider [...] Aneurysm Screening 2015 Falls Prevention 2015 Imm-Pneumococcal 50+ (2 of 2 - PPSV23) 06/03/2020 Hypertension Screening (#1) 12/28/2023 [id number] ( season) 2024 Alcohol and Drug Screen 08/16/2024 Depression Annual Screen 08/16/2024 Imm-Influenza (Season Ended) 2025 06/03/2019 [facility] DENTAL
== END 2025-02-09 11:33 | disposition home or self-care (01) ==
LOC: HO.HMCH 10:52
DX: I10 Essential (primary) hypertension (principal); I42.9 Cardiomyopathy, unspecified; E66.01 Morbid (severe) obesity due to excess calories; Z68.39 Body mass index [BMI] 39.0-39.9, adult; E66.812 Obesity, class 2; E78.5 Hyperlipidemia, unspecified; I77.89 Other specified disorders of arteries and arterioles; M10.9 Gout, unspecified; M43.16 Spondylolisthesis, lumbar region; H53.9 Unspecified visual disturbance

== ENCOUNTER → 2025-02-09 10:50 | Outpatient (BNVA) | payer MEDICARE, SELFPAY | DX: I10 Essential (primary) hypertension (principal); E78.5 Hyperlipidemia, unspecified; I77.89 Other specified disorders of arteries and arterioles; I42.9 Cardiomyopathy, unspecified; E66.812 Obesity, class 2; E66.01 Morbid (severe) obesity due to excess calories; Z68.39 Body mass index [BMI] 39.0-39.9, adult; M10.9 Gout, unspecified; M43.16 Spondylolisthesis, lumbar region; H53.9 Unspecified visual disturbance; Z71.3 Dietary counseling and surveillance | CPT/HCPCS: 99212 ==

== ENCOUNTER 2025-02-21 10:46 | Outpatient (REF) | payer MEDICARE, SELFPAY ==
[2025-02-21 11:04] LABS: MANUAL DIFF FLAG NO
[2025-02-21 11:44] LABS: Hematocrit 42.9 % (42.0-52.0); Hemoglobin 13.9 g/dl (14.0-18.0); Imm Gran Abs Auto 0.01 X10*3/uL (0.00-0.03); Imm Gran Pct Auto 0.2 % (0.0-0.4); Lymphocytes Absolute Auto 1.9 X10*3/uL (1.2-4.9); Mean Corpuscular HGB Conc 32.4 g/dl (31.0-36.0); Mean Corpuscular Hemoglobin 29.7 pg (27.0-33.0); Mean Corpuscular Volume 91.7 fL (80.0-98.0); NRBC Abs Auto 0.000 X10*3/uL (0.0-0.012); NRBC Pct Auto 0.0 /100WBC (0.0-0.2); Platelet Count 182 X10*3/uL (160-400); Red Blood Count 4.68 X10*6/uL (4.60-5.80); White Blood Count 6.5 X10*3/uL (4.8-10.8)
[2025-02-21 11:47] LABS: Hemoglobin A1C 141.7846 umol/L; Total Hemoglobin (HGBA1C) 3658.0541 umol/L
--- OUTSIDE RECORDS SUMMARY | 2025-02-21 11:49 | XMS_ITS | Clinical Summary ---
Author Organization [facility] Address [address] [place] [address] Care Team Providers Care Cone Machine Operator Name Role Phone Unavailable Primary Care [...] 2015 Imm-Pneumococcal 50+ (2 of 2 - PCV20 or PCV21) 020 06/03/2019 Hypertension Screening (#1) 12/28/2023 [id number] ( season) 2024 Alcohol and Drug Screen 08/16/2024 Depression Annual Screen 08/16/2024 Imm-Influenza (Season Ended) 2025 06/03/2019 Insurance [facility]
[2025-02-21 11:52] LABS: Appearance Urine Clear; Glucose Urine UA Negative (Negative); PH 6.5 (5.0-9.0); Specific Gravity - Urine 1.020 (1.005-1.025)
[2025-02-21 12:27] LABS: Alanine Aminotransferase 40 U/L (0-40); Albumin Level 4.4 g/dL (3.5-5.0); Alkaline Phosphatase 133 U/L (39-117); Anion Gap 8 (12-20); Aspartate Amino Transferase 38 U/L (5-37); Blood Urea Nitrogen 27 mg/dL (9-16); Calcium 9.4 mg/dL (8.4-10.2); Carbon Dioxide 37 mmol/L (22-29); Chloride 105 mmol/L (96-108); Cholesterol 142 mg/dL (<200); Estimated Glomerular Filt Rate > 60; HDL Cholesterol 32 mg/dL (>40); Potassium 4.3 mmol/L (3.3-5.1); Sodium 146 mmol/L (135-145); Total Protein 7.5 g/dL (6.5-8.0); Triglycerides 261 mg/dL (<150); Uric Acid 5.5 mg/dL (3.4-7.0)
== END 2025-02-21 10:47 | disposition home or self-care (01) ==
LOC: HO.LAB 10:46
DX: I10 Essential (primary) hypertension (principal); I77.89 Other specified disorders of arteries and arterioles; I42.9 Cardiomyopathy, unspecified; E78.5 Hyperlipidemia, unspecified; M43.16 Spondylolisthesis, lumbar region; M10.9 Gout, unspecified; M48.00 Spinal stenosis, site unspecified; E66.9 Obesity, unspecified; M25.519 Pain in unspecified shoulder; M25.559 Pain in unspecified hip
CPT/HCPCS: 36415; 80053; 80061; 81003; 82306; 83036; 84443; 84550; 85025

== ENCOUNTER 2025-05-17 10:45 | Outpatient (AMB) | payer MEDICARE, SELFPAY ==
[2025-05-17 10:49] VITALS: BP 120/70; PULSE 69; RESP 18; TEMP 36.2; BMI 38.9
--- NOTE | 2025-05-17 10:49 | A.OFFPC_ITS ---
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 Instructions: Resume on 11/11/24. atorvastatin 40 mg PO BEDTIME cane As directed carvedilol 25 mg PO BID chlorthalidone 25 mg PO DAILY clopidogrel 75 mg PO DAILY Held on 11/08/24. Instructions: Resume on 11/09/24. valsartan 320 mg PO DAILY Tobacco use date assessed: 05/17/25 Fall risk assessment: No Falls in past year Last assessed Fall Risk: 05/17/25 Dental Screening Dental Screen Date: 05/17/25 Did you have a dental visit in the last 12 months?: No Did you have a dental problem in the last 6 months where you did not have access to dental care?: No Was dental information given to patient?: No HPI annual exam - see comments HPI Details Dentist: couple years ago-reports that he does not like the dentist Eye: up to date- in February Snellen: Right: Left: Corrected vision: yes, glasses-new, trial to see if he could avoid cataract surgery will return in July STI screening:n/a Colonoscopy: declines-have never had this done Pap Smer:n/a PHQ-9: Flu: up to date COVID: x6 Tdap: due, declines Diet:regular Exercise: Unable to participate fully due to ongoing weakness in legs The patient is a 74-year-old male presenting for a routine wellness visit and management of chronic conditions. The patient reports a dental issue with a tooth that requires extraction due to breakage, although it is not currently painful. He has not visited a dentist in several years, partly due to negative past experiences with dental care. The patient has been informed of a potential need for cataract surgery in the future, although current evaluations show no progression in the condition. He recently received a new prescription for glasses, which has improved his vision. The patient has a history of elevated triglycerides, with a recent level of 261 mg/dL, and is advised to reduce intake of sugary and processed foods. He is aware of the impact of sodium on his blood pressure and is managing his diet accordingly. The patient underwent spine surgery six months ago and is currently in the recovery phase. He reports improved mobility but still experiences weakness in his legs, affecting his ability to walk long distances. The patient has a fasting glucose level of 109 mg/dL, indicating impaired fasting glucose, and is advised to monitor carbohydrate intake. He is not currently diabetic but is close to the threshold and is advised to be mindful of sugar intake. Preventative care measures include receiving an annual flu vaccination, which he plans to obtain soon. [facility] Medical History Teeth missing Left shoulder pain Tendonitis Arthritis Situational anxiety Weakness of both legs Cardiomyopathy CAD (coronary artery disease) HTN (hypertension) Environmental allergies Seasonal allergies PND (post-nasal drip) Hx of renal calculi Hyperlipidemia Obesity Screening for prostate cancer Gout History of nephrolithotomy with removal of calculi Surgical History History of back surgery Hx of cystoscopy (~1994) History of tonsillectomy (~1954) Family History Mother No problems noted. Father No problems noted. Social History Household Members: None Housing: House Are you a primary career center advisor to a significant other at home: No Do you presently have visiting nurse or other home services: No 75 years or older and lives alone: No Alcohol intake: current Alcohol intake frequency: does not drink Patient Tobacco Use Status: Never used Tobacco e-Cigarette/Vaping Use: Never Used Second Hand Smoke Exposure: No service: No Current occupational status: retired Cognitive needs: No Hearing needs: No Vision needs: Yes (GLASSES) Questionnaire Thrive Questionnaire Date Thrive assessed: 02/09/25 I am a: Patient What is your living situation today?: I have a steady place to live Within the past 12 months, did the food you bought not last and you didn't have the money to get more?: Never true Within the past 12 months, did you worry whether your food would run out before you got money to buy more?: Never true Do you have trouble paying for medicines?: No Do you have trouble getting transportation to medical appointments?: No Do you have trouble paying your heating and electricity bill?: No Do you have trouble taking care of your child, family member or friend?: No Do you have trouble with day-to-day activities such as bathing, preparing meals, shopping, managing finances, etc.?: No Are you currently unemployed and looking for a job?: No Are you interested in more education?: No Please select the resources that you would like help with: None Currently or been in a relationship where the following occur: No concerns reported THRIVE Score: 0 ZAID-7 AMB Questionnaire ZAID-7 Date ZAID - 7 assessed: 02/09/25 Source: Developed by Drs. Brant Rodriguez, Maggie Burnette, Antolin Bowser and colleagues, with an educational daron from [employer]. Review of Systems Const Denies headache(s) Eyes Denies loss of vision ENT Denies vertigo, Denies dizziness, Denies headache(s) and Denies sore throat Card Denies chest pain, Denies leg edema and Denies lightheadedness Resp Denies cough, Denies hemoptysis and Denies wheezing GI Denies abdominal pain, Denies melena, Denies constipation, Denies diarrhea and Denies vomiting Denies dysuria, Denies urinary frequency and Denies urinary urgency Musc Denies arthralgias, Denies joint swelling, Reports muscle weakness (Bilateral legs), Denies numbness and Denies tingling Skin/Breast Denies lesions and Denies rash Neuro Denies Abnormal speech present, Denies behavioral changes, Denies vertigo, Denies dizziness, Denies headache(s), Denies loss of vision, Denies memory loss, Denies numbness and Denies tingling Psych Denies anxiety, Denies behavioral changes, Denies depression, Denies memory loss and Denies panic attacks Rico/Lymph Denies easy bleeding and Denies easy bruising Aller/Immun Denies wheezing Physical exam (Primary Care) Vital Signs: Last Vital Signs Temp 97.1 F 05/17/25 10:49 Pulse 69 05/17/25 10:49 Resp 18 05/17/25 10:49 BP 120/70 05/17/25 10:49 Oxygen Delivery Method Room Air 05/17/25 10:49 BMI result Body Mass Index 38.9 Tobacco/Smoking Status: Tobacco use Status Tobacco use date assessed 05/17/25 05/17/25 10:50 Patient Tobacco Use Status Never used Tobacco 05/17/25 10:50 e-Cigarette/Vaping Use Never Used 05/17/25 10:50 Thrive Assessment: Date of Thrive Assessment Date Thrive assessed 02/09/25 05/17/25 10:50 Currently or been in a relationship where the following occur: No concerns reported Const General: healthy appearing, no acute distress, alert and awake Nutritional Appearance: well nourished Orientation/consciousness: oriented to person, oriented to place and oriented to time HENMT Ears: TM's normal bilaterally General nose exam: Normal nasal mucous membranes and turbinates present Throat: Yes posterior oropharynx normal Eyes Conjunctivae: conjunctivae normal Sclerae: sclerae normal Pupils: Equal, round and reactive pupils present Neck Neck: Yes no lymphadenopathy and Yes no JVD Thyroid: Thyroid normal Carotids: no bruits Resp Effort & Inspection: normal respiratory effort and not tachypneic Auscultation: no crackles, no rales, no rhonchi and no wheezes Cardio Rate: regular rate Rhythm: regular rhythm Heart sounds: no murmurs and normal S1 and S2 GI Palpation (GI): Soft to palpation, nontender, no hepatomegaly and no splenomegaly Auscultation: normal bowel sounds General: Yes no CVA tenderness Back/Spine/Pelvis Back: no CVA tenderness Thoracic/Lumbar Spine: No lumbar spinal tenderness Skin General skin exam: no rashes or lesions noted and dry skin Neuro General: oriented to person, oriented to place, oriented to time and CN's II-XI intact bilaterally Cranial nerves: Yes Equal, round and reactive pupils present and Yes Nystagmus not present Speech: No Abnormal speech present Gait exam (Neuro): Normal gait present Motor exam (neuro): no tremor noted Deep tendon reflexes (DTR's): Right triceps reflex intensity grade: 2+, Left triceps reflex intensity grade: 2+, Rt Biceps (C5, C6): 2+, Left biceps reflex intensity grade: 2+, Right brachioradialis reflex intensity grade: 2+, Left brachioradialis reflex intensity grade: 2+ and Right patellar reflex intensity grade: 2+ Extrem Right upper extremity: full ROM Left upper extremity: full ROM Right lower extremity: full ROM; no edema Left lower extremity: full ROM; no edema Psych Mental Status: mental status grossly normal Speech and movement: Normal speech and movement present Affect: normal affect Attitude: cooperative Thought process: Normal thought process present Results Reviewed Results Reviewed: Laboratory Tests 02/21/25 02/21/25 10:55 11:01 Sodium 146 H Potassium 4.3 Chloride 105 Carbon Dioxide 37 H Anion Gap 8 L BUN 27 H Creatinine 1.06 Estimated GFR > 60 Fasting Glucose 109 H Estimat Average Glucose 117 Hemoglobin A1c % 5.7 Uric Acid 5.5 Calcium 9.4 D Total Bilirubin 0.6 AST 38 H ALT 40 Alkaline Phosphatase 133 H Total Protein 7.5 Albumin 4.4 Triglycerides 261 H Cholesterol 142 LDL Cholesterol, Calc 58 HDL Cholesterol 32 L 25-OH Vitamin D Total 35.2 TSH 0.69 Urine Color Yellow Urine Appearance Clear Urine pH 6.5 Ur Specific [place] 1.020 Urine Protein Negative Urine Glucose (UA) Negative Urine Ketones Trace Urine Blood Negative Urine Nitrite Negative Ur Leukocyte Esterase Negative Coding Level of Care Code Est Pt Prev Care >65y([id number]) Diagnoses Physical exam Z00.00 Vision changes H53.9 Class 2 severe obesity with serious comorbidity and body mass index (BMI) of 39. 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 The patient have never had a colonoscopy and he is not interested in getting this done, including a Cologuard. The patient is due for tetanus shot-declines. (2) Vision changes: Code(s): H53.9 - Unspecified visual disturbance Category: Medical Plan: Reports that he was told in the past that at some point he will need cataract surgery. The patient was evaluated by ophthalmology, who gave him a new pair of glass to wear to see if his vision improves. His control panel assembler is hopeful that he could still hold off on doing cataract surgery. Follow up with Ophthalmology as scheduled (3) Obesity: Code(s): E66.9 - Obesity, unspecified Category: Medical Qualifiers: Obesity type: unspecified obesity type Obesity classification: adult class 2 (BMI 35 - 39.9) Serious obesity comorbidity presence: with serious comorbidity Body mass index: BMI 39.0-39.9 Qualified Code(s): E66.812 - Obesity, class 2; E66.01 - Morbid (severe) obesity due to excess calories; Z68.39 - Body mass index [BMI] 39.0-39.9, adult Plan: Discussed lifestyle modifications including dietary changes and physical activity (4) Hyperlipidemia: Code(s): E78.5 - Hyperlipidemia, unspecified Category: Medical Qualifiers: Hyperlipidemia type: unspecified Qualified Code(s): E78.5 - Hyperli pidemia, unspecified Plan: Triglycerides 261, total cholesterol 142, LDL 58, HDL 32 Discussed lifestyle modifications including dietary changes and physical activity-especially sugary and the process foods need to be cut back on due to elevated triglycerides Continue atorvastatin 40 mg daily at bedtime Encouraged fish oil (5) Cardiomyopathy: Code(s): I42.9 - Cardiomyopathy, unspecified Category: Medical Qualifiers: Cardiomyopathy type: unspecified Qualified Code(s): I42.9 - Cardiomyopathy, unspecified Plan: EF 15% 05/2019, SINCE IMPROVED TO 40% Continue carvedilol 25 mg b.i.d. and valsartan 320 mg daily (6) Hypertension: Code(s): I10 - Essential (primary) hypertension Category: Medical Qualifiers: Hypertension type: unspecified Qualified Code(s): I10 - Essential (primary) hypertension Plan: Blood pressure 120/70, goal systolic less than 130mmhg Reinforced low-sodium diet Continue valsartan 320 mg daily, chlorthalidone 25 mg daily, carvedilol 25 mg b.i.d. (7) Coronary artery ectasia: Code(s): I77.89 - Other specified disorders of arteries and arterioles Category: Medical Plan: Patient continues on dual anti-platelet therapy aspirin and Plavix Follow up with [facility] as scheduled (Celso Cheek MD) (8) Gout: Code(s): M10.9 - Gout, unspecified Category: Medical Qualifiers: Gout site: toe Gout etiology: unspecified cause Chronicity: unspecified Laterality: left Qualified Code(s): M10.9 - Gout, unspecified Plan: Asymptomatic. Uric acid 5.5. Continue allopurinol 300 mg daily (9) Spondylolisthesis, lumbar region: Code(s): M43.16 - Spondylolisthesis, lumbar region Category: Medical Plan: Status post L4-[address] Godinez. Bilateral leg radiculopathy resolved. Reports he tries to do too much and he feels the difference and has to start knowing his limitation. Otherwise, he is doing much better. (10) Impaired fasting glucose: Code(s): R73.01 - Impaired fasting glucose Category: Medical Plan: The patient has a fasting glucose level of 109 mg/dL, indicating pre-diabetes. He is advised to monitor carbohydrate intake and maintain regular follow-up to prevent progression to diabetes. Orders: Orders Complete Blood Count Auto Diff 3 Months E66.01 - Morbid (severe) obesity due to excess calories, E66.812 - Obesity, class 2, E78.5 - Hyperlipidemia, uns pecified, H53.9 - Unspecified visual disturbance, I10 - Essential (primary) hypertension, I42.9 - Cardiomyopathy, unspecified, M48.00 - Spinal stenosis, site unspecified, Z68.39 - Body mass index [BMI] 39.0-39.9, adult TSH reflex Free T4 3 Months E66.01 - Morbid (severe) obesity due to excess calories, E66.812 - Obesity, class 2, E78.5 - Hyperlipidemia, unspecified, H53.9 - Unspecified visual disturbance, I10 - Essential (primary) hypertension, I42.9 - Cardiomyopathy, unspecified, M48.00 - Spinal stenosis, site unspecified, Z68.39 - Body mass index [BMI] 39.0-39.9, adult Comprehensive [place]. Panel Fast 3 Months E66.01 - Morbid (severe) obesity due to excess calories, E66.812 - Obesity, class 2, E78.5 - Hyperlipidemia, unspecified, H53.9 - Unspecified visual disturbance, I10 - Essential (primary) hypertension, I42.9 - Cardiomyopathy, unspecified, M48.00 - Spinal stenosis, site unspecified, Z68.39 - Body mass index [BMI] 39.0-39.9, adult UA CC w/rflx Micro + Cult 3 Months E66.01 - Morbid (severe) obesity due to excess calories, E66.812 - Obesity, class 2, E78.5 - Hyperlipidemia, unspecified, H53.9 - Unspecified visual disturbance, I10 - Essential (primary) hypertension, I42.9 - Cardiomyopathy, unspecified, M48.00 - Spinal stenosis, site unspecified, Z68.39 - Body mass index [BMI] 39.0-39.9, adult Vitamin D 25-OH Total 3 Months E66.01 - Morbid (severe) obesity due to excess calories, E66.812 - Obesity, class 2, E78.5 - Hyperlipidemia, unspecified, H53.9 - Unspecified visual disturbance, I10 - Essential (primary) hypertension, I42.9 - Cardiomyopathy, unspecified, M48.00 - Spinal stenosis, site unspecified, Z68.39 - Body mass index [BMI] 39.0-39.9, adult Lipid Panel 3 Months E66.01 - Morbid (severe) obesity due to excess calories, E66.812 - Obesity, class 2, E78.5 - Hyperlipidemia, unspecified, H53.9 - Unspecified visual disturbance, I10 - Essential (primary) hypertension, I42.9 - Cardiomyopathy, unspecified, M48.00 - Spinal stenosis, site unspecified, Z68.39 - Body mass index [BMI] 39.0-39.9, adult
--- OUTSIDE RECORDS SUMMARY | 2025-05-17 12:34 | XMS_ITS | Clinical Summary ---
Author Organization [facility] Address [address] [place] [address] Care Team Providers Care Insurance Administrator Name Role Phone Unavailable Primary Care Provider [...] [phone] [phone] 06/03/2019 Hypertension Screening (#1) 12/28/2023 Alcohol and Drug Screen 08/16/2024 Depression Annual Screen 08/16/2024 [id number] ( season) 2025 Imm-Influenza (#1) 2025 06/03/2019 Insurance [facility]
== END 2025-05-17 12:09 | disposition home or self-care (01) ==
LOC: HO.HMCH 10:45
DX: Z00.00 Encounter for general adult medical examination without abnormal findings (principal); E66.01 Morbid (severe) obesity due to excess calories; I42.9 Cardiomyopathy, unspecified; Z68.39 Body mass index [BMI] 39.0-39.9, adult; H53.9 Unspecified visual disturbance; E78.5 Hyperlipidemia, unspecified; I10 Essential (primary) hypertension; I77.89 Other specified disorders of arteries and arterioles; M10.9 Gout, unspecified; M43.16 Spondylolisthesis, lumbar region; R73.01 Impaired fasting glucose

== ENCOUNTER → 2025-05-17 10:45 | Outpatient (BNVA) | payer MEDICARE, SELFPAY | DX: Z00.00 Encounter for general adult medical examination without abnormal findings (principal); E66.812 Obesity, class 2; E66.01 Morbid (severe) obesity due to excess calories; R79.89 Other specified abnormal findings of blood chemistry; H53.9 Unspecified visual disturbance; E78.5 Hyperlipidemia, unspecified; I42.9 Cardiomyopathy, unspecified; I10 Essential (primary) hypertension; I77.89 Other specified disorders of arteries and arterioles; M10.9 Gout, unspecified; M43.16 Spondylolisthesis, lumbar region; R73.01 Impaired fasting glucose; Z68.39 Body mass index [BMI] 39.0-39.9, adult | CPT/HCPCS: 99397 ==